=== PATIENT | male | born 1965 | race Caucasian/White ===

== ENCOUNTER 2016-11-28 07:24 | Inpatient (IN) | payer MEDICAID ==
[~2016-11-28] VITALS: Ht 180.3 cm; Wt 71.0 kg
--- NOTE | ~2016-11-28 | CON ---
[employer], [place] REPORT OF CONSULTATION [facility] [id number] UNIT #: [id number] ROOM: 506 DOCTOR: SANDEEP DE JESUS MD BIRTHDATE: [birth year] DOS: HISTORY OF PRESENT ILLNESS: The patient has presented with multiple medical problems, among which has been his epigastric pain, dyspepsia, cephalalgia and he had endoscopic assessment done. Gastritis, hiatal hernia, Alvarez's esophagus identified. He has been scheduled for outpatient for colonoscopy followup. He has been complaining of persistent headache. CT scan of the head has been incomplete evaluation of ethmoids. Therefore, he is going to be deferred to Dr. Umaña for his sinuses issues for management and possible antibiotic therapy. His latest H and H 13 and 39. Differential within normal limit. Comprehensive metabolic panel, electrolytes all balanced. REVIEW OF SYSTEMS: No hematemesis, no hematochezia. No chest pain. No shortness of breath. Gastrointestinal system: Hiatal hernia, gastritis, and Alvraez's esophagus. PHYSICAL EXAMINATION: VITAL SIGNS: Stable. HEENT: Lump at the angle of the jaw on the right side and also at the occiput of the skull that requires drainage in future. Otherwise, HEENT benign. NECK: Supple, no thyromegaly. CHEST: Symmetric anatomy, decreased air entry bilaterally. HEART: Normal sinus rhythm, no gallop, no murmur. ABDOMEN: Soft. No hepato-organomegaly. Bowel sounds present. No pulsatile mass. No rebound effect. EXTREMITIES: No cyanosis, no pedal edema. NEUROLOGIC: Alert, oriented to time, place, person. IMPRESSION: Hiatal hernia, gastritis, Alvarez esophagus, cephalalgia that has to be addressed. ENT consult is going to be organized. Dr. Umaña and I are going to follow up as an outpatient. He needs a colonoscopy screening as well. SANDEEP DE JESUS MD CM:CONSTR:REPORT OF CONSULTATION 1110 12/03/16 3105 interface
--- NOTE | ~2016-11-28 | PROC NOTE ---
[place], [place] PROCEDURE NOTE NAME: BARI SALINAS UNIT #: [id number] ROOM: 506 DOCTOR: SANDEEP DE JESUS MD BIRTHDATE: [birth year] DOS: INDICATION FOR PROCEDURE: A 51-year-old patient who presented with chief complaint of dysphagia, dyspepsia, aggressive alcohol and nicotine dependence. PROCEDURE: Today's procedure part of investigation is panendoscopy plus biopsies, distal esophagus and antrum. PREMEDICATION: Versed and Diprivan. SCOPE: Olympus folding gastroscope Q10 video. REPORT: After putting the patient in the left lateral position and after application of lubricant to the scope, the scope was introduced. Thereafter, under direct visualization, I advanced through the length of the esophagus without difficulty. Esophagus, cervical, thoracic distally carefully examined. Distal esophagitis consistent with Alvarez esophagus, short segment was noticed. Gastric pouch was entered. Gastritis was seen. Antrum was biopsied for H. pylori. Duodenal bulb, second and third part within normal limits. Scope was gradually withdrawn. GI reflexion of scope reveals cardia to be benign. Air was suctioned out. The distal esophagus was biopsied and photographed. The patient extubated, tolerated procedure well. IMPRESSION: Small hiatal hernia, short segment Alvarez esophagus, gastritis mild degree, status post antral biopsy. PLAN AND DISCUSSION: The patient advised to abstain from smoking and alcohol and elevation of the head of the bed 6 inches all time. Omeprazole 20 mg 1 every day would suffice management. Follow up as an outpatient. SANDEEP DE JESUS MD CM:PROCNOTE:PROCEDURE NOTE [id number] SANDEEP DE JESUS MD
--- NOTE | ~2016-11-28 | CON ---
[place], [place] REPORT OF CONSULTATION NAME: BARI SALINAS [facility] #: [id number] UNIT #: [id number] ROOM: 506 DOCTOR: PENELOPE BEST MD BIRTHDATE: [birth year] DOS: 11/29/2016 REASON FOR CONSULTATION: Coronary artery calcification. HISTORY OF PRESENT ILLNESS: The patient is a 51-year-old man who has no previously documented history of coronary artery disease. He does have a history of hypertension and does smoke 1-2 packs of cigarettes a day. He presented to the hospital on this occasion because of abdominal pain and vomiting for 3 weeks. He has noticed that his cough has progressively gotten worse and it is associated with pleuritic chest pain as well as chest wall tenderness. The patient did have a CT scan of his chest on 11/28/2016, which showed extensive coronary artery calcification. We were therefore asked to see the patient. He was admitted to the hospital in 04/2016 with atypical chest pain. He ruled out for myocardial infarction at that time. Cardiac evaluation included an echocardiogram which showed an ejection fraction of 55% with normal wall motion. The patient had trace mitral insufficiency. The study was otherwise unremarkable. He also had an exercise myocardial perfusion exam. He walked 6 minutes and stopped for fatigue. He had no chest pain. He had no diagnostic electrocardiographic changes. Perfusion images showed an ejection fraction of 71% with normal myocardial perfusion, and no wall motion abnormalities. The study was felt to be low risk. His risk factors for coronary artery disease include a family history of heart disease in his father who had bypass surgery in his early 50s, long-term and ongoing cigarette abuse, and hypertension. The patient's lipid profile is unremarkable. PAST MEDICAL HISTORY: Includes: 1. Hypertension. 2. Hypothyroidism. 3. Alcohol abuse. 4. Macrocytic anemia. 5. Gastroesophageal reflux disease. 6. Long-term and ongoing tobacco abuse. MEDICATIONS PRIOR TO ADMISSION: Aspirin 81 mg daily. ALLERGIES: THE PATIENT LISTS AN ALLERGY TO PENICILLINS. IN ADDITION, HE DID HAVE ANGIOEDEMA WHEN TREATED WITH LISINOPRIL. FAMILY HISTORY: The patient's father had myocardial infarction and a bypass surgery in his early 50s. His mother is alive and well. His brothers and sisters are all healthy to his knowledge. SOCIAL HISTORY: The patient is and lives with his . He smokes 1-2 packs of cigarettes every day. He also drinks a substantial amount of alcohol [place], [place] REPORT OF CONSULTATION [id number] UNIT #: [id number] ROOM: 506 DOCTOR: PENELOPE BEST MD BIRTHDATE: [birth year] on a daily basis. PHYSICAL EXAMINATION: GENERAL: Reveals a well-nourished white male who is awake, alert and oriented. VITAL SIGNS: Pulse is 68 and regular, blood pressure is 134/85. He is afebrile. He weighs 71 kg and has a body mass index of 21.8. HEENT: Normocephalic, atraumatic. Extraocular muscles are intact. Sclerae are clear. Pupils are equal, round and react to light. The oral mucosa is moist. Tongue is midline. NECK: Supple. He has no jugular distention. Carotids are full. I heard no bruits. He had no neck or supraclavicular masses. No thyromegaly. LUNGS: Respirations are unlabored. His chest is clear to auscultation and percussion. He has no presacral edema and no chest wall tenderness. CARDIOVASCULAR: His heart has a regular rhythm. There are no murmurs or rubs. He has a fourth heart sound, but no third heart sound. The PMI is not displaced. There is no precordial heave, lift or thrill. ABDOMEN: Soft and normoactive without masses, organomegaly or bruits. EXTREMITIES: Showed no edema. Peripheral pulses were palpable in the feet bilaterally. LABORATORY DATA: I reviewed his electrocardiogram. It shows sinus rhythm with early repolarization changes, but no acute ST or T-wave changes. Troponin levels on this admission are normal. IMPRESSION: 1. Cigarette abuse. 2. Alcohol abuse. 3. Hypertension. 4. Family history of early coronary disease in his father. 5. History of angioedema from lisinopril. 6. Coronary artery calcifications. PLAN: The patient did have a stress test and echocardiogram in 04/2016. Results of these tests were low risk. Coronary artery calcification indicates the presence of plaque, but does not indicate that the plaque is active or occlusive. Therefore, while it is difficult to have occlusive coronary artery disease without coronary calcifications, the presence of calcifications does not imply that severe coronary occlusion is present as well. Since he just had an echo with stress test within the last year, no other evaluation at this time would be appropriate. He certainly should do all that is in his power to modify his risk factors. This especially means curtailing his cigarette use and controlling his blood pressure. At this point, we will sign off, but will remain available to reassess him should his symptoms change. We thank the hospitalist group for asking our advice regarding his care. [place], [place] REPORT OF CONSULTATION NAME: BARI SALINAS Glenn UNIT #: [id number] ROOM: 506 DOCTOR: PENELOPE BEST MD BIRTHDATE: [birth year] PENELOPE BEST MD CM:CONSTR:REPORT OF CONSULTATION 1529 11/30/16 0016 interface
--- NOTE | ~2016-11-28 | CON ---
[place], [place] REPORT OF CONSULTATION NAME: BARI SALINAS UNIT #: [id number] ROOM: 506 DOCTOR: SANDEEP DE JESUS MD BIRTHDATE: [birth year] DOS: 12/02/2016 HISTORY OF PRESENT ILLNESS: The patient is a 51-year-old, who has presented with chief complaints of epigastric distress, gastroesophageal reflux, esophageal biopsy for gastritis, hiatal hernia and Alvarez's esophagus. He has now cephalalgia that he is dealing with. Tylenol is not helping and I am offering suggestions to be managed with migraine protocol to see if it is going to be of help. On the other hand, he has anemia, borderline. He has not had a colonoscopy screening in the past, this is going to be organized in future as an outpatient. PAST MEDICAL HISTORY: Associated with alcohol dependency, hypothyroidism, hypertension, macrocytic anemia, nicotine dependency and gastroesophageal reflux. REVIEW OF SYSTEMS: HEENT: Denies double vision or blurred vision. RESPIRATORY: Denies shortness of breath. CARDIOVASCULAR: Denies chest pain. DIGESTIVE SYSTEM: No hematemesis and no hematochezia. Otherwise, as endoscopic findings. PHYSICAL EXAMINATION: VITAL SIGNS: Stable. HEENT: Benign. He has a lump under mandibular angle of his jaw externally and he has the same lump in the occiput posteriorly of his skull. NECK: Supple, otherwise. RESPIRATORY: Lung vesicular. No wheeze and no rhonchi. HEART: Normal sinus rhythm. No gallop and no murmur. ABDOMEN: Soft. No hepato-organomegaly. Bowel sounds present. No pulsatile mass. EXTREMITIES: No cyanosis and no pedal edema. NEUROLOGIC: Alert and oriented to time, place and person. IMPRESSION: Anemia, nicotine and alcohol dependency and migraine cephalalgia. PLAN AND DISCUSSION: Migraine coverage. Advising to away from alcoholic status and reducing his nicotine consumption. Followup colonoscopy as outpatient. [place], [place] REPORT OF CONSULTATION NAME: BARI SALINAS Glenn UNIT #: [id number] ROOM: 506 DOCTOR: SANDEEP DE JESUS MD BIRTHDATE: [birth year] SANDEEP DE JESUS MD CM:CONSTR:REPORT OF CONSULTATION 1643 12/03/16 0030 interface
[~2016-11-28 07:24] MED LIST: HYDROCHLOROTH12.5 M2 PO; LIBRIUM5 MG PO; LISINOPRIL10 M1 PO
[2016-11-28] MEDS ORDERED: ASPIRIN81 M1 PO (07:30)
[2016-11-28 08:17] LABS: BASO # 0.1 10*3/uL (0.0-0.1); BASO % 0.9 % (0.0-1.0); EOS % 0.3 % (1.0-4.0); HEMATOCRIT 41.6 % (42.0-52.0); HEMOGLOBIN 14.5 g/dl (14.0-18.0); LYMPH # 1.6 10*3/uL (1.3-4.4); LYMPH % 25.7 % (27.0-41.0); MEAN CELL VOLUME 94.3 fl (80.0-94.0); MEAN CORPUSCULAR HGB 32.9 pg (27.0-31.0); MEAN CORPUSCULAR HGB CONC 34.9 g/dl (33.0-37.0); MEAN PLATELET VOLUME 8.7 fl (9.6-12.3); MONO # 0.6 10*3/uL (0.1-1.0); MONO % 9.9 % (3.0-9.0); PLATELET COUNT AUTOMATED 210 10*3/uL (130-400); RED BLOOD COUNT 4.41 10*6/uL (4.50-5.90); RED CELL DISTRI WIDTH 12.8 % (0-14.5); WHITE BLOOD COUNT 6.4 10*3/uL (4.8-10.8)
[2016-11-28 08:25] LABS: INTERNATIONAL NORM RATIO 0.9 (2.0-3.5)
[2016-11-28 08:33] LABS: ALKALINE PHOSPHATASE 66 U/L (45-117); BILIRUBIN, TOTAL 0.5 mg/dl (0.2-1.0); BUN 12 mg/dl (7-24); CARBON DIOXIDE 26 mmol/L (21-32); CHLORIDE 101 mmol/L (98-107); CKMB 0.9 ng/ml (0.5-3.6); CPK 125 U/L (39-308); EST GLOM FILT AFRICAN AMERICAN > 60 ml/min; GLUCOSE 114 mg/dL (65-99); MAGNESIUM 1.9 mg/dL (1.5-2.1); POTASSIUM 4.3 mmol/L (3.5-5.1); SGOT/AST 34 IU/L (3-35); SGPT/ALT 23 U/L (12-78); SODIUM 137 mmol/L (136-145)
[2016-11-28 08:36] LABS: C-REACTIVE PROTEIN < 0.29 MG/DL (0-0.3); TROPONIN I < 0.015 ng/ml (<0.045)
[2016-11-28 10:14] LABS: LA>2 REFLEX 2 HR DRAW NOW
[2016-11-28 10:29] LABS: LA>2 RFLX FOLLOW UP AT 2 HRS 2.7 mmol/L (0.4-2.0)
[2016-11-28 12:09] LABS: CKMB 0.8 ng/ml (0.5-3.6); CPK 118 U/L (39-308); TROPONIN I < 0.015 ng/ml (<0.045)
[2016-11-28 12:24] LABS: LA>2 REFLEX 4 HR DRAW NOW
[2016-11-28 17:55] LABS: URINE AMPHETAMINES < 1000 (1000ng/ml); URINE BARBITURATES < 200 (200ng/ml); URINE COCAINE < 300 (300ng/ml)
[2016-11-28 17:57] LABS: BILIRUBIN NEGATIVE (NEGATIVE); BLOOD NEGATIVE (NEGATIVE); CLARITY SL CLOUDY (CLEAR); COLOR YELLOW (YELLOW); GLUCOSE NEGATIVE (NEGATIVE); KETONE NEGATIVE (NEGATIVE); LEUKO ESTERASE NEGATIVE (NEGATIVE); NITRITE NEGATIVE (NEGATIVE); PH 6.5 (5.0-9.0); PROTEIN NEGATIVE (NEGATIVE); SPECIFIC GRAVITY <= 1.005 (1.005-1.030); UROBILINOGEN 0.2 E.U./dl (0.2-1.0)
[2016-11-28 18:07] LABS: CKMB 0.9 ng/ml (0.5-3.6); CPK 113 U/L (39-308)
[2016-11-28 18:12] LABS: TROPONIN I < 0.015 ng/ml (<0.045)
[2016-11-28 18:30] LABS: BACTERIA TRACE; EPITHELIAL CELLS 0-2; RBC 0-2 rbc/hpf (0-2); URINE REFLEX COMMENT NO (NO)
[2016-11-29 00:56] LABS: CKMB 1.7 ng/ml (0.5-3.6); CPK 119 U/L (39-308)
[2016-11-29 01:02] LABS: TROPONIN I < 0.015 ng/ml (<0.045)
[2016-11-29 06:12] LABS: BASO # 0.1 10*3/uL (0.0-0.1); EOS # 0.2 10*3/uL (0.0-0.4); EOS % 2.9 % (1.0-4.0); HEMATOCRIT 38.9 % (42.0-52.0); HEMOGLOBIN 13.1 g/dl (14.0-18.0); LYMPH % 38.9 % (27.0-41.0); MEAN CELL VOLUME 96.8 fl (80.0-94.0); MEAN CORPUSCULAR HGB 32.6 pg (27.0-31.0); MEAN CORPUSCULAR HGB CONC 33.7 g/dl (33.0-37.0); MEAN PLATELET VOLUME 9.3 fl (9.6-12.3); MONO # 0.6 10*3/uL (0.1-1.0); NEUT # 2.4 10*3/uL (2.3-7.9); PLATELET COUNT AUTOMATED 180 10*3/uL (130-400); RED BLOOD COUNT 4.02 10*6/uL (4.50-5.90); RED CELL DISTRI WIDTH 12.9 % (0-14.5); WHITE BLOOD COUNT 5.3 10*3/uL (4.8-10.8)
[2016-11-29 06:44] LABS: PROTHROMBIN TIME 10.9 SECONDS (9.0-12.4)
[2016-11-29 06:45] LABS: ALBUMIN 3.1 gm/dl (3.1-4.5); BILIRUBIN, TOTAL 1.1 mg/dl (0.2-1.0); BUN 11 mg/dl (7-24); CARBON DIOXIDE 23 mmol/L (21-32); CHLORIDE 103 mmol/L (98-107); CHOLESTEROL 143 mg/dL (<200); EST GLOM FILT AFRICAN AMERICAN > 60 ml/min; GLUCOSE 84 mg/dL (65-99); MAGNESIUM 1.9 mg/dL (1.5-2.1); PHOSPHOROUS 3.1 mg/dL (2.5-4.9); POTASSIUM 3.9 mmol/L (3.5-5.1); SGOT/AST 31 IU/L (3-35); SGPT/ALT 19 U/L (12-78); SODIUM 137 mmol/L (136-145); TRIGLYCERIDES 76 mg/dl (<150); VLDL CHOLESTEROL 15 mg/dL (6-40)
[2016-11-29 06:51] LABS: ALKALINE PHOSPHATASE 54 U/L (45-117); FREE T4 0.73 ng/dl (0.76-1.46); HDL CHOLESTEROL 70 mg/dl (40-60); LDL CHOLESTEROL 58 mg/dL (9-159)
[2016-11-29 06:51] LABS: VITAMIN D, 25-HYDROXY 10.1 ng/mL (30-100)
[2016-11-29 06:52] LABS: FOLIC ACID 7.64 ng/mL (>5.38)
[2016-11-30 07:05] LABS: BASO # 0.1 10*3/uL (0.0-0.1); EOS # 0.1 10*3/uL (0.0-0.4); EOS % 2.7 % (1.0-4.0); HEMATOCRIT 39.3 % (42.0-52.0); HEMOGLOBIN 13.3 g/dl (14.0-18.0); LYMPH # 1.8 10*3/uL (1.3-4.4); LYMPH % 34.2 % (27.0-41.0); MEAN CELL VOLUME 96.3 fl (80.0-94.0); MEAN CORPUSCULAR HGB 32.6 pg (27.0-31.0); MEAN CORPUSCULAR HGB CONC 33.8 g/dl (33.0-37.0); MEAN PLATELET VOLUME 9.4 fl (9.6-12.3); MONO # 0.6 10*3/uL (0.1-1.0); MONO % 11.3 % (3.0-9.0); NEUT # 2.7 10*3/uL (2.3-7.9); NEUT % 50.6 % (47.0-73.0); PLATELET COUNT AUTOMATED 169 10*3/uL (130-400); RED BLOOD COUNT 4.08 10*6/uL (4.50-5.90); RED CELL DISTRI WIDTH 12.6 % (0-14.5); WHITE BLOOD COUNT 5.2 10*3/uL (4.8-10.8)
[2016-11-30 07:21] LABS: CHLORIDE 104 mmol/L (98-107); SODIUM 137 mmol/L (136-145)
[2016-11-30 07:43] LABS: ALBUMIN 3.1 gm/dl (3.1-4.5); ALKALINE PHOSPHATASE 51 U/L (45-117); BILIRUBIN, TOTAL 0.5 mg/dl (0.2-1.0); BUN 8 mg/dl (7-24); CARBON DIOXIDE 22 mmol/L (21-32); EST GLOM FILT AFRICAN AMERICAN > 60 ml/min; GLUCOSE 93 mg/dL (65-99); SGOT/AST 33 IU/L (3-35); SGPT/ALT 21 U/L (12-78); TOTAL PROTEIN 6.1 gm/dL (6.4-8.2)
[2016-12-01 06:22] LABS: BASO # 0.1 10*3/uL (0.0-0.1); BASO % 1.1 % (0.0-1.0); EOS # 0.3 10*3/uL (0.0-0.4); EOS % 4.6 % (1.0-4.0); HEMOGLOBIN 13.7 g/dl (14.0-18.0); LYMPH # 2.4 10*3/uL (1.3-4.4); MEAN CELL VOLUME 97.4 fl (80.0-94.0); MEAN CORPUSCULAR HGB 32.5 pg (27.0-31.0); MEAN CORPUSCULAR HGB CONC 33.4 g/dl (33.0-37.0); MEAN PLATELET VOLUME 9.8 fl (9.6-12.3); MONO # 0.6 10*3/uL (0.1-1.0); MONO % 11.7 % (3.0-9.0); NEUT # 2.1 10*3/uL (2.3-7.9); NEUT % 38.4 % (47.0-73.0); PLATELET COUNT AUTOMATED 174 10*3/uL (130-400); RED BLOOD COUNT 4.21 10*6/uL (4.50-5.90); RED CELL DISTRI WIDTH 12.7 % (0-14.5); WHITE BLOOD COUNT 5.5 10*3/uL (4.8-10.8)
[2016-12-01 06:48] LABS: ALBUMIN 3.2 gm/dl (3.1-4.5); ALKALINE PHOSPHATASE 55 U/L (45-117); BILIRUBIN, TOTAL 0.3 mg/dl (0.2-1.0); BUN 9 mg/dl (7-24); CARBON DIOXIDE 29 mmol/L (21-32); CHLORIDE 103 mmol/L (98-107); EST GLOM FILT AFRICAN AMERICAN > 60 ml/min; GLUCOSE 91 mg/dL (65-99); POTASSIUM 4.1 mmol/L (3.5-5.1); SGOT/AST 30 IU/L (3-35); SGPT/ALT 22 U/L (12-78); SODIUM 141 mmol/L (136-145); TOTAL PROTEIN 6.6 gm/dL (6.4-8.2)
[2016-12-02 06:36] LABS: BASO % 0.6 % (0.0-1.0); EOS # 0.3 10*3/uL (0.0-0.4); EOS % 5.1 % (1.0-4.0); HEMATOCRIT 40.8 % (42.0-52.0); HEMOGLOBIN 13.4 g/dl (14.0-18.0); LYMPH # 2.4 10*3/uL (1.3-4.4); LYMPH % 38.4 % (27.0-41.0); MEAN CELL VOLUME 98.8 fl (80.0-94.0); MEAN CORPUSCULAR HGB 32.4 pg (27.0-31.0); MEAN CORPUSCULAR HGB CONC 32.8 g/dl (33.0-37.0); MEAN PLATELET VOLUME 10.3 fl (9.6-12.3); MONO # 0.8 10*3/uL (0.1-1.0); MONO % 11.8 % (3.0-9.0); NEUT # 2.8 10*3/uL (2.3-7.9); NEUT % 43.9 % (47.0-73.0); PLATELET COUNT AUTOMATED 165 10*3/uL (130-400); RED BLOOD COUNT 4.13 10*6/uL (4.50-5.90); RED CELL DISTRI WIDTH 12.8 % (0-14.5); WHITE BLOOD COUNT 6.3 10*3/uL (4.8-10.8)
[2016-12-02 07:11] LABS: BUN 10 mg/dl (7-24); CARBON DIOXIDE 29 mmol/L (21-32); CHLORIDE 101 mmol/L (98-107); GLUCOSE 88 mg/dL (65-99); SODIUM 140 mmol/L (136-145)
[2016-12-02 07:12] LABS: EST GLOM FILT AFRICAN AMERICAN > 60 ml/min
[2016-12-03 06:11] LABS: BASO # 0.1 10*3/uL (0.0-0.1); BASO % 0.8 % (0.0-1.0); EOS # 0.3 10*3/uL (0.0-0.4); EOS % 4.8 % (1.0-4.0); HEMATOCRIT 39.6 % (42.0-52.0); HEMOGLOBIN 13.5 g/dl (14.0-18.0); LYMPH # 2.1 10*3/uL (1.3-4.4); LYMPH % 35.5 % (27.0-41.0); MEAN CELL VOLUME 97.3 fl (80.0-94.0); MEAN CORPUSCULAR HGB 33.2 pg (27.0-31.0); MEAN CORPUSCULAR HGB CONC 34.1 g/dl (33.0-37.0); MEAN PLATELET VOLUME 10.1 fl (9.6-12.3); MONO # 0.7 10*3/uL (0.1-1.0); NEUT # 2.8 10*3/uL (2.3-7.9); NEUT % 46.7 % (47.0-73.0); PLATELET COUNT AUTOMATED 173 10*3/uL (130-400); RED BLOOD COUNT 4.07 10*6/uL (4.50-5.90); RED CELL DISTRI WIDTH 12.6 % (0-14.5)
[2016-12-03 06:25] LABS: ALBUMIN 3.4 gm/dl (3.1-4.5); ALKALINE PHOSPHATASE 61 U/L (45-117); BILIRUBIN, TOTAL 0.2 mg/dl (0.2-1.0); BUN 12 mg/dl (7-24); CARBON DIOXIDE 26 mmol/L (21-32); CHLORIDE 101 mmol/L (98-107); EST GLOM FILT AFRICAN AMERICAN > 60 ml/min; GLUCOSE 98 mg/dL (65-99); POTASSIUM 4.2 mmol/L (3.5-5.1); SGOT/AST 22 IU/L (3-35); SGPT/ALT 25 U/L (12-78); SODIUM 138 mmol/L (136-145); TOTAL PROTEIN 6.8 gm/dL (6.4-8.2)
== END 2016-12-03 12:36 | disposition home or self-care (01) | DRG 392 ==
LOC: ED 07:24 → EDHOLD 09:39 → 5E 09:39
PROVIDERS: Emergency Medicine; Family Medicine; Hospitalist; Internal Medicine
PROC: 0DB68ZX Excision of Stomach, Via Natural or Artificial Opening Endoscopic, Diagnostic (ICD-10-PCS; principal; 2016-12-01)
DX: K29.70 Gastritis, unspecified, without bleeding (principal); E44.0 Moderate protein-calorie malnutrition; E87.1 Hypo-osmolality and hyponatremia; R13.10 Dysphagia, unspecified; F17.210 Nicotine dependence, cigarettes, uncomplicated; K21.9 Gastro-esophageal reflux disease without esophagitis; I10 Essential (primary) hypertension; E03.9 Hypothyroidism, unspecified; Z88.0 Allergy status to penicillin; Z88.8 Allergy status to other drugs, medicaments and biological substances; R11.10 Vomiting, unspecified; R51 Headache; I25.10 Atherosclerotic heart disease of native coronary artery without angina pectoris; Z82.49 Family history of ischemic heart disease and other diseases of the circulatory system; Z90.49 Acquired absence of other specified parts of digestive tract; D53.9 Nutritional anemia, unspecified; Z71.6 Tobacco abuse counseling; E55.9 Vitamin D deficiency, unspecified; Z68.21 Body mass index [BMI] 21.0-21.9, adult; K44.9 Diaphragmatic hernia without obstruction or gangrene; K22.70 Barrett's esophagus without dysplasia; F10.20 Alcohol dependence, uncomplicated; G43.909 Migraine, unspecified, not intractable, without status migrainosus

== ENCOUNTER 2017-04-17 18:08 | Inpatient (IN) | payer SELFPAY ==
[~2017-04-17] VITALS: Ht 180.3 cm; Wt 66.9 kg
[~2017-04-17 18:08] MED LIST changes: +ASPIRIN81 M1 PO
[2017-04-17 18:30] VITALS: BP 149/95
[2017-04-17] MEDS ORDERED: LEVOFLOXACIN500 MG PO (18:43)
[2017-04-17 18:46] LABS: BASO # 0.1 10*3/uL (0.0-0.1); EOS # 0.1 10*3/uL (0.0-0.4); EOS % 0.9 % (1.0-4.0); HEMATOCRIT 42.4 % (42.0-52.0); HEMOGLOBIN 14.7 g/dl (14.0-18.0); LYMPH # 2.7 10*3/uL (1.3-4.4); LYMPH % 40.1 % (27.0-41.0); MEAN CELL VOLUME 96.6 fl (80.0-94.0); MEAN CORPUSCULAR HGB 33.5 pg (27.0-31.0); MEAN CORPUSCULAR HGB CONC 34.7 g/dl (33.0-37.0); MONO % 14.6 % (3.0-9.0); NEUT # 2.9 10*3/uL (2.3-7.9); NEUT % 43.3 % (47.0-73.0); PLATELET COUNT AUTOMATED 187 10*3/uL (130-400); RED BLOOD COUNT 4.39 10*6/uL (4.50-5.90); RED CELL DISTRI WIDTH 12.9 % (0-14.5); WHITE BLOOD COUNT 6.8 10*3/uL (4.8-10.8)
[2017-04-17 18:56] LABS: INTERNATIONAL NORM RATIO 0.9 (2.0-3.5); PROTHROMBIN TIME 9.6 SECONDS (9.0-12.4)
[2017-04-17 19:03] LABS: ALBUMIN 4.1 gm/dl (3.1-4.5); ALKALINE PHOSPHATASE 70 U/L (45-117); BILIRUBIN, TOTAL 0.4 mg/dl (0.2-1.0); BUN 9 mg/dl (7-24); CARBON DIOXIDE 26 mmol/L (21-32); CHLORIDE 102 mmol/L (98-107); EST GLOM FILT AFRICAN AMERICAN > 60 ml/min; GLUCOSE 93 mg/dL (65-99); MAGNESIUM 1.9 mg/dL (1.5-2.1); POTASSIUM 4.3 mmol/L (3.5-5.1); SGOT/AST 54 IU/L (3-35); SGPT/ALT 25 U/L (12-78); SODIUM 138 mmol/L (136-145); TOTAL PROTEIN 7.9 gm/dL (6.4-8.2)
[2017-04-17 19:04] LABS: TROPONIN I < 0.015 ng/ml (<0.045)
[2017-04-17 21:10] VITALS: BP 134/92
[2017-04-18] VITALS: BP 121/71
[2017-04-18 06:13] LABS: BASO # 0.1 10*3/uL (0.0-0.1); EOS # 0.1 10*3/uL (0.0-0.4); EOS % 1.2 % (1.0-4.0); HEMATOCRIT 40.5 % (42.0-52.0); HEMOGLOBIN 13.8 g/dl (14.0-18.0); LYMPH # 1.6 10*3/uL (1.3-4.4); LYMPH % 32.1 % (27.0-41.0); MEAN CELL VOLUME 97.4 fl (80.0-94.0); MEAN CORPUSCULAR HGB 33.2 pg (27.0-31.0); MEAN CORPUSCULAR HGB CONC 34.1 g/dl (33.0-37.0); MEAN PLATELET VOLUME 9.2 fl (9.6-12.3); MONO # 0.8 10*3/uL (0.1-1.0); MONO % 16.1 % (3.0-9.0); NEUT # 2.5 10*3/uL (2.3-7.9); NEUT % 49.4 % (47.0-73.0); PLATELET COUNT AUTOMATED 151 10*3/uL (130-400); RED BLOOD COUNT 4.16 10*6/uL (4.50-5.90)
[2017-04-18 06:50] LABS: BUN 9 mg/dl (7-24); CARBON DIOXIDE 25 mmol/L (21-32); CHLORIDE 105 mmol/L (98-107); CHOLESTEROL 154 mg/dL (<200); EST GLOM FILT AFRICAN AMERICAN > 60 ml/min; FREE T4 0.69 ng/dl (0.76-1.46); GLUCOSE 80 mg/dL (65-99); HDL CHOLESTEROL 79 mg/dl (40-60); INTERNATIONAL NORM RATIO 0.9 (2.0-3.5); LDL CHOLESTEROL 63 mg/dL (9-159); PHOSPHOROUS 3.2 mg/dL (2.5-4.9); POTASSIUM 4.1 mmol/L (3.5-5.1); SODIUM 139 mmol/L (136-145); TRIGLYCERIDES 61 mg/dl (<150); VLDL CHOLESTEROL 12 mg/dL (6-40)
[2017-04-18 06:57] LABS: THYROID STIM HORMONE (HS) 0.681 uIU/ml (0.358-4.75)
[2017-04-18 07:44] LABS: HEMOGLOBIN A1c 5.3 % (4.8-5.6)
[2017-04-18 08:00] VITALS: BP 144/85
[2017-04-18 09:17] LABS: VITAMIN D, 25-HYDROXY 43.5 ng/mL (30-100)
[2017-04-18 09:18] LABS: FOLIC ACID > 24.00 ng/mL (>5.38)
== END 2017-04-18 11:00 | disposition home or self-care (01) | DRG 313 ==
LOC: ED 18:08 → EDHOLD 20:20 → 4E 20:20
PROVIDERS: Internal Medicine; Nurse Practitioner Family
DX: R07.9 Chest pain, unspecified (principal); E03.9 Hypothyroidism, unspecified; F10.920 Alcohol use, unspecified with intoxication, uncomplicated; F17.210 Nicotine dependence, cigarettes, uncomplicated; R74.0 Nonspecific elevation of levels of transaminase and lactic acid dehydrogenase [LDH]; K21.9 Gastro-esophageal reflux disease without esophagitis; Z82.49 Family history of ischemic heart disease and other diseases of the circulatory system; Z79.899 Other long term (current) drug therapy; Z88.0 Allergy status to penicillin; Z88.8 Allergy status to other drugs, medicaments and biological substances; Z71.6 Tobacco abuse counseling; Z87.81 Personal history of (healed) traumatic fracture

== ENCOUNTER 2017-04-25 09:03 | Emergency (ER) | payer SELFPAY ==
[~2017-04-25] VITALS: Wt 72.6 kg
[~2017-04-25 09:03] MED LIST changes: +LEVOFLOXACIN500 MG PO
[2017-04-25] MEDS ORDERED: NAPROSYN500 MG PO (09:17)
[2017-04-25] MEDS ORDERED: 'PARAFON FORTE500 M1 PO (09:17)
== END 2017-04-25 11:20 | disposition home or self-care (01) ==
LOC: ED 09:03
DX: M54.42 Lumbago with sciatica, left side (principal); R03.0 Elevated blood-pressure reading, without diagnosis of hypertension; F17.200 Nicotine dependence, unspecified, uncomplicated; I10 Essential (primary) hypertension; E03.9 Hypothyroidism, unspecified; K21.9 Gastro-esophageal reflux disease without esophagitis; Z88.0 Allergy status to penicillin; Z88.8 Allergy status to other drugs, medicaments and biological substances; Z79.82 Long term (current) use of aspirin

== ENCOUNTER 2017-04-30 13:06 | Emergency (ER) | payer OTHER ==
[~2017-04-30] VITALS: Ht 180.3 cm; Wt 72.6 kg
[~2017-04-30 13:06] MED LIST changes: +'PARAFON FORTE500 M1 PO; +NAPROSYN500 MG PO
[2017-04-30] MEDS ORDERED: MEDROL DOSEPAK4 MG PO (13:51)
== END 2017-04-30 14:08 | disposition home or self-care (01) ==
LOC: ED 13:06
DX: M54.40 Lumbago with sciatica, unspecified side (principal); I10 Essential (primary) hypertension; E03.9 Hypothyroidism, unspecified; K21.9 Gastro-esophageal reflux disease without esophagitis; F17.200 Nicotine dependence, unspecified, uncomplicated; Z88.0 Allergy status to penicillin; Z88.8 Allergy status to other drugs, medicaments and biological substances; Z79.899 Other long term (current) drug therapy

== ENCOUNTER → 2017-06-15 | Outpatient (CLI) | payer OTHER ==
[~2017-06-15] MED LIST changes: +MEDROL DOSEPAK4 MG PO
== END | disposition home or self-care (01) ==
LOC: MRI 09:00
DX: M48.06 Spinal stenosis, lumbar region (principal); S33.5XXA Sprain of ligaments of lumbar spine, initial encounter; X58.XXXA Exposure to other specified factors, initial encounter; Y93.89 Activity, other specified; Y92.89 Other specified places as the place of occurrence of the external cause; Y99.8 Other external cause status

== ENCOUNTER 2017-07-08 14:18 | Inpatient (IN) | payer SELFPAY ==
[~2017-07-08] VITALS: Ht 180.3 cm; Wt 68.9 kg
--- NOTE | 2017-07-08 14:26 | NUR ---
PT STATES TO TRIAGE NURSE "IF YOU CALL ME.... I'LL BE OUTSIDE SMOKING"
[2017-07-08 14:45] VITALS: BP 135/89
[2017-07-08 15:01] LABS: BASO # 0.1 10*3/uL (0.0-0.1); BASO % 0.6 % (0.0-1.0); EOS % 0.4 % (1.0-4.0); HEMATOCRIT 40.8 % (42.0-52.0); HEMOGLOBIN 13.7 g/dl (14.0-18.0); LYMPH # 2.2 10*3/uL (1.3-4.4); LYMPH % 22.2 % (27.0-41.0); MEAN CELL VOLUME 98.3 fl (80.0-94.0); MEAN CORPUSCULAR HGB CONC 33.6 g/dl (33.0-37.0); MEAN PLATELET VOLUME 10.1 fl (9.6-12.3); MONO # 1.2 10*3/uL (0.1-1.0); MONO % 12.1 % (3.0-9.0); NEUT # 6.3 10*3/uL (2.3-7.9); NEUT % 64.3 % (47.0-73.0); PLATELET COUNT AUTOMATED 79 10*3/uL (130-400); RED BLOOD COUNT 4.15 10*6/uL (4.50-5.90); WHITE BLOOD COUNT 9.8 10*3/uL (4.8-10.8)
[2017-07-08 15:06] LABS: BILIRUBIN NEGATIVE (NEGATIVE); BLOOD NEGATIVE (NEGATIVE); CLARITY CLEAR (CLEAR); COLOR YELLOW (YELLOW); GLUCOSE NEGATIVE (NEGATIVE); KETONE NEGATIVE (NEGATIVE); LEUKO ESTERASE NEGATIVE (NEGATIVE); NITRITE NEGATIVE (NEGATIVE); PH 6.5 (5.0-9.0); SPECIFIC GRAVITY <= 1.005 (1.005-1.030); UROBILINOGEN 0.2 E.U./dl (0.2-1.0)
[2017-07-08 15:16] LABS: BACTERIA TRACE; EPITHELIAL CELLS 0-2; WBC 0-2 wbc/hpf (0-5)
[2017-07-08 15:17] LABS: URINE AMPHETAMINES < 1000 (1000ng/ml); URINE BARBITURATES < 200 (200ng/ml); URINE BENZODIAZEPINES < 200 (200ng/ml); URINE CANNABINOIDS (THC) < 50 (50ng/ml); URINE COCAINE < 300 (300ng/ml); URINE METHADONE < 300 (300ng/ml); URINE OPIATES < 300 (300ng/ml); URINE PHENCYCLIDINE < 25 (25ng/ml)
[2017-07-08 15:17] LABS: ALBUMIN 3.9 gm/dl (3.1-4.5); ALKALINE PHOSPHATASE 94 U/L (45-117); BUN 4 mg/dl (7-24); CHLORIDE 100 mmol/L (98-107); CREATININE 0.77 mg/dL (0.70-1.30); MAGNESIUM 1.9 mg/dL (1.5-2.1); POTASSIUM 4.1 mmol/L (3.5-5.1); SGOT/AST 303 IU/L (3-35); SGPT/ALT 161 U/L (12-78); SODIUM 135 mmol/L (136-145); TOTAL PROTEIN 7.8 gm/dL (6.4-8.2)
--- NOTE | 2017-07-08 15:29 | NUR ---
NOTIFIED BY LAB OF CRITICAL ALCOHOL OF [address] DR BRANDON ARGUELLO.
--- NOTE | 2017-07-08 16:00 | NUR ---
51 year old M admitted to room # 410 for stabilization. Reports an addiction to alcohol. last used today prior to admission. Compliant with admission procedure. Patient somewhat anxious, but is able to sit still. able to focus eyes on nurse during interview. See assessment forms for additional information about patient status.
[2017-07-08 16:24] VITALS: BP 128/76
--- NOTE | 2017-07-08 16:53 | NUR ---
PT COMPLAINS OF BACK PAIN AND HEADACHE, TYLENOL GIVEN. PT GIVEN FIRST DOSE OF LIBRIUM, DISCUSS MEDICATION, NEEDS REINFORCEMENT. PT WITH LOW UNDERSTANDING OF MEDICAION AND HAS DIFFICULT TIME FOCOUSING AT TIMES. WILL CONTINUE TO MONITOR FOR NEEDS. IV INFUSING INTO RIGHT AC IV WITHOUT DIFFICULTY. SKULL GRINDER ON, HRR. ASSESSMENT COMPLETE.
--- NOTE | 2017-07-08 19:54 | NUR ---
PT MEDICATED WITH PRN ZOFRAN/IBUPROFEN FOR C/O NAUSEA/CHRONIC BACK PAIN.
[2017-07-08 20:00] VITALS: BP 111/62
--- NOTE | 2017-07-08 21:00 | NUR ---
PT RESTING QUIETLY IN BED. NO FURHTER C/O PAIN/NAUSEA. MILD DIAPHORESIS NOTED. HEAT TURNED DOWN IN ROOM. CALL LIGHT IN REACH.
--- NOTE | 2017-07-08 22:26 | NUR ---
24 HR chart check completed.
[2017-07-09 06:10] LABS: ALBUMIN 3.2 gm/dl (3.1-4.5); ALKALINE PHOSPHATASE 93 U/L (45-117); BUN 6 mg/dl (7-24); CHLORIDE 102 mmol/L (98-107); CREATININE 0.78 mg/dL (0.70-1.30); FREE T4 0.72 ng/dl (0.76-1.46); MAGNESIUM 1.7 mg/dL (1.5-2.1); PHOSPHOROUS 3.6 mg/dL (2.5-4.9); SGOT/AST 229 IU/L (3-35); SGPT/ALT 122 U/L (12-78); SODIUM 136 mmol/L (136-145); TOTAL PROTEIN 6.6 gm/dL (6.4-8.2)
--- NOTE | 2017-07-09 06:25 | NUR ---
PT RESTING QUIETLY IN BED. NO FURTHER C/O PAIN VOICED. FINE HAND TREMORS NOTED PREVIOUSLY. PT STATES THAT DIAPHORESIS SUBSIDED. ENCOURAGED TO CALL FOR PRN MEDS IF NEEDED. PT AGREEABLE.
[2017-07-09 08:00] VITALS: BP 140/86
--- NOTE | 2017-07-09 08:10 | NUR ---
Medicated with tyelnol per prn order for complaints of headache.
--- NOTE | 2017-07-09 09:00 | NUR ---
Pt states that tylenol was effective.
[2017-07-09 12:00] VITALS: BP 146/88
--- NOTE | 2017-07-09 14:41 | NUR ---
Pt up ambulatory in purvis. Gait steady.
[2017-07-09 16:00] VITALS: BP 141/88
--- NOTE | 2017-07-09 17:22 | NUR ---
Pt medicated for complaints of back pain medicated with robaxin and motrin. Pt then states he is having upset stomach and nausea so bentyl and zofran was given.
[2017-07-09 20:00] VITALS: BP 155/95
--- NOTE | 2017-07-09 20:35 | NUR ---
PT RESTING QUIETLY IN BED. C/O DIARRHEA EARLIER TODAY AND VIVID DREAMS. PT ALSO NOTED TO BE DIAPHORETIC AND HAND TREMORS. GENERAL WEAKNESS NOTED. DENIES ANY NEED FOR ANY PRN'S AT THIS TIME.
[2017-07-10] VITALS: BP 159/95; BP 165/92
--- NOTE | 2017-07-10 01:00 | NUR ---
PT RESTING QUIETLY IN BED. PRN TYLENOL EFFECTIVE FOR PAIN RELIEF.
--- NOTE | 2017-07-10 04:32 | NUR ---
24 HR chart check completed.
[2017-07-10 08:00] VITALS: BP 142/98
[2017-07-10 12:00] VITALS: BP 132/98
[2017-07-10 16:00] VITALS: BP 142/92
--- NOTE | 2017-07-10 19:57 | NUR ---
PT. RESTING IN BED. AMBULATING IN HALLS, GAIT UNSTEADY. INSTRUCTED PT TO CALL FOR ASSISTANCE PRIOR TO AMBULATING. REMAINS ALERT AND ORIENTED x3. NO HEP LOCK NOTED. LUNGS DIMINISHED BUT CLEAR BILAT. ABDOMEN SOFT NONDISTENDED AND NORMO. NO PERIPHERAL EDEMA NOTED. STATED HE WAS REFUSING LIBRIUM BECAUSE IT MADE HIM FEEL FUNNY AND MADE IT DIFFICULT TO WALK. EXPLAINED PURPOSE OF TAPERING LIBRIUM WITH ALCOHOLIC DETOX. PT. AGREED TO TAKE MIDNIGHT DOSE HE WAS GOING TO GO TO BED ANYWAY. STEWART SINGER RN
[2017-07-10 20:00] VITALS: BP 143/88
--- NOTE | 2017-07-10 21:35 | NUR ---
PT. GIVEN LIBRIUM, BENTYL, DYSREL AND ROBAXIN ORDERED FOR DT'S, CRAMPS, SLEEP AIDE.
--- NOTE | 2017-07-10 23:15 | NUR ---
PT. SLEEPING, LIBRIUM, BENTYL, DYSEREL AND ROBAXIN EFFECTIVE.
[2017-07-11] VITALS: BP 115/81
[2017-07-11 04:00] VITALS: BP 124/78
--- NOTE | 2017-07-11 06:19 | NUR ---
PT. GIVEN VISTARIL, ROBAXIN AND BENTYL FOR COMPLAINTS OF ANXIETY AND CRAMPING. STEWART SINGER RN
[2017-07-11 06:50] LABS: BASO % 0.5 % (0.0-1.0); EOS # 0.2 10*3/uL (0.0-0.4); HEMATOCRIT 39.9 % (42.0-52.0); HEMOGLOBIN 13.4 g/dl (14.0-18.0); LYMPH # 1.7 10*3/uL (1.3-4.4); LYMPH % 29.3 % (27.0-41.0); MEAN CELL VOLUME 98.5 fl (80.0-94.0); MEAN CORPUSCULAR HGB 33.1 pg (27.0-31.0); MEAN CORPUSCULAR HGB CONC 33.6 g/dl (33.0-37.0); MONO # 0.6 10*3/uL (0.1-1.0); NEUT # 3.2 10*3/uL (2.3-7.9); PLATELET COUNT AUTOMATED 91 10*3/uL (130-400); RED BLOOD COUNT 4.05 10*6/uL (4.50-5.90); RED CELL DISTRI WIDTH 12.9 % (0-14.5); WHITE BLOOD COUNT 5.8 10*3/uL (4.8-10.8)
[2017-07-11 07:16] LABS: ALBUMIN 3.2 gm/dl (3.1-4.5); ALKALINE PHOSPHATASE 95 U/L (45-117); BUN 8 mg/dl (7-24); CHLORIDE 101 mmol/L (98-107); CREATININE 0.69 mg/dL (0.70-1.30); POTASSIUM 3.9 mmol/L (3.5-5.1); SGOT/AST 87 IU/L (3-35); SGPT/ALT 78 U/L (12-78); SODIUM 135 mmol/L (136-145); TOTAL PROTEIN 7.2 gm/dL (6.4-8.2)
[2017-07-11 08:00] VITALS: BP 114/60
--- NOTE | 2017-07-11 08:00 | NUR ---
Shift chart check completed.24 HR chart check completed. Patient awakened from sound sleep for his last scheduled dose of Librium. He was diophoretic. Denied any pain. He did state that he thought he had "breathing treatments ordered". They are prn. RT Bruna Sapp notified patient asking for one. No tremors noted. He denies visual or auditory hallucinations. "Only my dreams". Will continue to monitor.
--- NOTE | 2017-07-11 09:08 | NUR ---
LAURA WHITMORE [employer] WORK[employer] HAS VISITED. PT TO BE DISCHARGED. RADIOLOGY IS MAKING A DISC OF HIS MRI.
--- NOTE | 2017-07-11 10:40 | NUR ---
DISCHARGE INSTRUCTIONS TO PT. MONITOR REMOVED.
--- NOTE | 2017-07-11 10:46 | NUR ---
DISCHARGED IN STABLE CONDITION VIA W/C TO [facility] WHERE HE HAD CALLED A CAB TO PICK HIM UP.
== END 2017-07-11 10:46 | disposition home or self-care (01) | DRG 433 ==
LOC: ED 14:18 → EDHOLD 15:35 → 4E 15:35 → EDHOLD 15:35 → 4E 15:42
PROVIDERS: Emergency Medicine; Registered Nurse; Student in an Organized Health Care Education/Training Program; ADMIT Internal Medicine
DX: K70.10 Alcoholic hepatitis without ascites (principal); E44.0 Moderate protein-calorie malnutrition; K70.9 Alcoholic liver disease, unspecified; D69.6 Thrombocytopenia, unspecified; E83.51 Hypocalcemia; E87.1 Hypo-osmolality and hyponatremia; D72.810 Lymphocytopenia; R73.9 Hyperglycemia, unspecified; K21.9 Gastro-esophageal reflux disease without esophagitis; D53.9 Nutritional anemia, unspecified; I10 Essential (primary) hypertension; E03.9 Hypothyroidism, unspecified; E55.9 Vitamin D deficiency, unspecified; R00.0 Tachycardia, unspecified; M54.40 Lumbago with sciatica, unspecified side; R74.0 Nonspecific elevation of levels of transaminase and lactic acid dehydrogenase [LDH]; G89.29 Other chronic pain; F10.120 Alcohol abuse with intoxication, uncomplicated; Z88.0 Allergy status to penicillin; Z88.8 Allergy status to other drugs, medicaments and biological substances; Z79.899 Other long term (current) drug therapy; Z82.49 Family history of ischemic heart disease and other diseases of the circulatory system; Z71.6 Tobacco abuse counseling; Z79.82 Long term (current) use of aspirin; Z68.21 Body mass index [BMI] 21.0-21.9, adult; Z72.0 Tobacco use

== ENCOUNTER 2017-08-07 15:21 | Emergency (ER) | payer OTHER ==
[~2017-08-07] VITALS: Ht 180.3 cm; Wt 73.5 kg
[2017-08-07] MEDS ORDERED: PREDNISONE10 MG PO (16:19)
== END 2017-08-07 16:22 | disposition home or self-care (01) ==
LOC: ED 15:21
DX: G89.29 Other chronic pain (principal); M54.9 Dorsalgia, unspecified; F17.200 Nicotine dependence, unspecified, uncomplicated; Z88.0 Allergy status to penicillin; Z88.8 Allergy status to other drugs, medicaments and biological substances; Z79.899 Other long term (current) drug therapy

== ENCOUNTER 2019-06-10 14:18 | Inpatient (IN) | payer MEDICAID ==
[~2019-06-10] VITALS: Ht 180.3 cm; Wt 65.5 kg
[~2019-06-10 14:18] MED LIST changes: +ATARAX,VISTARIL50 MG PO; +CYCLOBENZAPRINE10 MG PO; +HYDROCHLOROTH12.5 M3 PO; +PREDNISONE10 MG PO; +VITAMIN D32000 UNI1 PO
[2019-06-10 14:23] VITALS: BP 144/78
[2019-06-10 15:14] LABS: BASO # 0.1 10*3/uL (0.0-0.1); BASO % 1.4 % (0.0-1.0); EOS % 0.6 % (1.0-4.0); HEMOGLOBIN 13.6 g/dl (14.0-18.0); LYMPH % 38.7 % (27.0-41.0); MEAN CELL VOLUME 95.1 fl (80.0-94.0); MEAN CORPUSCULAR HGB 31.6 pg (27.0-31.0); MEAN CORPUSCULAR HGB CONC 33.2 g/dl (33.0-37.0); MEAN PLATELET VOLUME 9.4 fl (9.6-12.3); MONO # 0.6 10*3/uL (0.1-1.0); MONO % 12.2 % (3.0-9.0); NEUT # 2.4 10*3/uL (2.3-7.9); NEUT % 46.7 % (47.0-73.0); PLATELET COUNT AUTOMATED 112 10*3/uL (130-400); RED BLOOD COUNT 4.31 10*6/uL (4.50-5.90); WHITE BLOOD COUNT 5.2 10*3/uL (4.8-10.8)
[2019-06-10 15:26] LABS: ACT PARTIAL THROMBO TIME 26.3 SECONDS (20.0-32.1)
[2019-06-10 15:41] LABS: ALBUMIN 3.6 gm/dl (3.1-4.5); ALKALINE PHOSPHATASE 135 U/L (45-117); BUN 3 mg/dl (7-24); CHLORIDE 98 mmol/L (98-107); CREATININE 0.68 mg/dL (0.70-1.30); POTASSIUM 3.5 mmol/L (3.5-5.1); SGOT/AST 227 IU/L (3-35); SGPT/ALT 69 U/L (12-78); SODIUM 133 mmol/L (136-145); TOTAL PROTEIN 8.5 gm/dL (6.4-8.2)
[2019-06-10 15:48] LABS: BILIRUBIN NEGATIVE (NEGATIVE); BLOOD NEGATIVE (NEGATIVE); CLARITY CLEAR (CLEAR); COLOR YELLOW (YELLOW); GLUCOSE NEGATIVE (NEGATIVE); KETONE NEGATIVE (NEGATIVE); LEUKO ESTERASE NEGATIVE (NEGATIVE); NITRITE NEGATIVE (NEGATIVE); UROBILINOGEN 0.2 E.U./dl (0.2-1.0)
[2019-06-10 15:54] LABS: HYALINE CAST 31-40
[2019-06-10 17:40] VITALS: BP 155/92
--- NOTE | 2019-06-10 17:40 | NUR ---
A 53, admitted to , under the services of ADRIEL Pathak DO with a diagnosis of ETOH ABUSE, ETOH INTOX, RECTAL BLEEDING. Chief complaint is ANAL BLEEDING. Patient arrived via wheel chair from ER. Monitor applied. Initial assessment completed. Vital signs taken and recorded. ADRIEL PATHAK DO notified of admission to the unit. Orders received. See assessment for past medical history, medications and allergies. Patient and/or family oriented to unit. [facility] visitation policy reviewed. Clothing/patient valuable form completed. TUYET POSEY
--- NOTE | 2019-06-10 18:48 | NUR ---
ATTEMPTS TO REACH DR DE JESUS REGARDING NEW CONSULT. LOST CONNECTION. AWAITING CALL BACK.
[2019-06-10 20:00] VITALS: BP 124/83
--- NOTE | 2019-06-10 20:35 | NUR ---
24 HR chart check completed.
--- NOTE | 2019-06-10 20:45 | NUR ---
RESTING IN BED. RESPIRATIONS EASY. LUNGS DIMINISHED, CLEAR. PULSE OX 97% RA. PATIENT NOTED TO HAVE SUTURES TO SCROTUM; UNSURE WHAT PROCEDURE, DR, OR WHERE PROCEDURE WAS PERFORMED. OFFERED AND EDUCATED REGARDING TEDS, DECLINED TO WEAR BUT TEDS PLACED AT BEDSIDE. CALL LIGHT WITHIN REACH.
--- NOTE | 2019-06-10 20:54 | NUR ---
MEDICATED WITH TYLENOL PER PRN ORDER FOR COMPLAINTS OF HEADACHE RATING A 5. CALL LIGHT WITHIN REACH. WILL MONITOR FOR EFFECTIVENESS
--- NOTE | 2019-06-10 21:30 | NUR ---
DR NICHOLSON CONTACTED REGARDING PATIENT ADMITTING TO DRINKING DAILY. WHEN QUESTIONED REGARDING AMOUNT, PATIENT STATES "ALOT." PATIENT GOES ON TO SAY AT LEAST 4 40 OZ BEERS DAILY AND THAT HE HAS WENT THROUGH DT'S IN THE PAST, INFO RELAYED TO ALSO INFORMED OF SUTURES TO PENIS. DR YOUSIF ENTER NEW ORDERS
[2019-06-10 22:00] LABS: HEMATOCRIT 37.3 % (42.0-52.0); HEMOGLOBIN 12.4 g/dl (14.0-18.0)
--- NOTE | 2019-06-10 22:00 | NUR ---
STATES RELIEF FROM EARLIER TYLENOL
[2019-06-11] VITALS: BP 130/86
--- NOTE | 2019-06-11 01:00 | NUR ---
PATIENT TRANSPORTED OFF FLOOR TO CT
--- NOTE | 2019-06-11 02:00 | NUR ---
SLEEPING. NO DISTRESS NOTED
[2019-06-11 02:11] LABS: HEMATOCRIT 36.9 % (42.0-52.0); HEMOGLOBIN 12.4 g/dl (14.0-18.0)
--- NOTE | 2019-06-11 06:00 | NUR ---
SLEPT THROUGHOUT NIGHT WITH NO DISTRESS NOTED. RESPIRATIONS EASY. NO ACTIVE BLEED. CALL LIGHT WITHIN REACH. NO VOICED COMPLAINTS THIS SHIFT
[2019-06-11 06:12] LABS: BASO # 0.1 10*3/uL (0.0-0.1); BASO % 1.3 % (0.0-1.0); EOS # 0.1 10*3/uL (0.0-0.4); EOS % 1.1 % (1.0-4.0); HEMATOCRIT 38.9 % (42.0-52.0); HEMOGLOBIN 12.8 g/dl (14.0-18.0); LYMPH # 1.7 10*3/uL (1.3-4.4); LYMPH % 37.1 % (27.0-41.0); MEAN CELL VOLUME 95.3 fl (80.0-94.0); MEAN CORPUSCULAR HGB 31.4 pg (27.0-31.0); MEAN CORPUSCULAR HGB CONC 32.9 g/dl (33.0-37.0); MEAN PLATELET VOLUME 10.2 fl (9.6-12.3); MONO # 0.8 10*3/uL (0.1-1.0); MONO % 17.5 % (3.0-9.0); NEUT % 42.8 % (47.0-73.0); PLATELET COUNT AUTOMATED 111 10*3/uL (130-400); RED BLOOD COUNT 4.08 10*6/uL (4.50-5.90); RED CELL DISTRI WIDTH 16.1 % (0-14.5); WHITE BLOOD COUNT 4.6 10*3/uL (4.8-10.8)
[2019-06-11 06:22] LABS: ALBUMIN 3.5 gm/dl (3.1-4.5); ALKALINE PHOSPHATASE 128 U/L (45-117); BUN 4 mg/dl (7-24); CHLORIDE 98 mmol/L (98-107); CREATININE 0.75 mg/dL (0.70-1.30); PHOSPHOROUS 4.2 mg/dL (2.5-4.9); POTASSIUM 3.6 mmol/L (3.5-5.1); SGOT/AST 210 IU/L (3-35); SGPT/ALT 65 U/L (12-78); SODIUM 134 mmol/L (136-145)
[2019-06-11 08:00] VITALS: BP 146/90
--- NOTE | 2019-06-11 08:02 | NUR ---
RESIDENT IN TO SEE PATIENT AT THIS TIME.
--- NOTE | 2019-06-11 09:38 | NUR ---
PT GIVEN PO TYLENOL PER PRN ORDER FOR C/O HEADACHE. WILL MONITOR EFFECTIVENESS.
--- NOTE | 2019-06-11 10:30 | NUR ---
CALLED REGARDING DIET ORDER. OKAY FOR PATIENT TO HAVE REGULAR DIET.
--- NOTE | 2019-06-11 11:01 | NUR ---
ORTHOS PERFORMED PER ORDER. LAYING BP 153/84. HR 76. SITTING BP 141/90. HR 95. STANDING BP 129/87. HR 118. PT STATES HE IS DIZZY WITH STANDING. WILL NOTIFY PHYSICIAN.
--- NOTE | 2019-06-11 11:03 | NUR ---
NOTIFIED REGARDING ORTHO RESULTS.
[2019-06-11 12:00] VITALS: BP 149/94
--- NOTE | 2019-06-11 12:27 | NUR ---
Waste Picker in to talk to patient. Patient states lives at home with uncle. There are few steps in the home. Physician: bonny landrum Pharmacy: [facility] Home health services: none Patient's level of ADLs: INDEPENDENT Patient has working utilities: all working DME: none Follow-up physician's appointment after d/c: will be made by hospsitlist nurse director upon discharge Does patient want to access PORTAL?: no Discharge plan discussed with patient, he states he lives at home with his uncle, he is independent in adls and ambulation, works, but doesn't drive, he has a daughter that takes him to the grocery store or where ever he needs to go, he states he will return home when able and denies any home needs, case management will follow. CHET GUAMAN
--- NOTE | 2019-06-11 13:01 | NUR ---
IN TO SEE PATIENT.
--- NOTE | 2019-06-11 14:00 | NUR ---
PATIENT RESTING QUIETLY IN BED. NO DISTRESS NOTED. NO VOICED COMPLAINTS. WILL CONTINUE TO MONITOR.
[2019-06-11 16:00] VITALS: BP 153/78
[2019-06-11 20:00] VITALS: BP 156/92
--- NOTE | 2019-06-11 20:30 | NUR ---
IN TO ASSESS PATIENT, PATIENT RESTING IN BED. PLEASANT AND COOPERATIVE. FLAT AFFECT. DIMINISHED LUNGS ON ROOM AIR. DENIES SOB, DENIES CP, MORMOACTIVE BOWELS X4 QUADS. DENIES N/V/D/C. STATES HE HAS NOT HAD A BLOODY BOWEL MOVEMENT TODAY. NO EDEMA NOTED. DENIES DYSURIA. URINE DARK JAYLA IN URINAL. IV FLUIDS INFUSING. PATIENT STATES HE OFF AND ON GETS THE SHAKES, NO TREMORS NOTED AT THIS TIME. CALL LIGHT WITHIN REACH, AILYN MONITOR
[2019-06-12] VITALS: BP 146/84; BP 155/96
--- NOTE | 2019-06-12 03:24 | NUR ---
PT SLEEPING, NO DISTRESS NOTED. CALL LIGHT WITHIN REACH, WLL MALATHI
--- NOTE | 2019-06-12 06:08 | NUR ---
24 HR chart check completed.
[2019-06-12 07:17] LABS: HEMATOCRIT 36.7 % (42.0-52.0); HEMOGLOBIN 12.1 g/dl (14.0-18.0)
[2019-06-12 08:00] VITALS: BP 150/97
--- NOTE | 2019-06-12 08:35 | NUR ---
PT SITTING UP IN BED. RESPIRATIONS EASY, REGULAR. PT ALERT/ORIENTED X3. NO TREMORS NOTED. ROUTINE ATIVAN GIVEN AT THIS TIME. NO VOICED COMPLAINTS. WILL CONTINUE TO MONITOR. SEE SHIFT ASSESSMENT.
--- NOTE | 2019-06-12 08:44 | NUR ---
NOTIFIED REGARDING AM LABS. NEW ORDERS RECEIVED.
--- NOTE | 2019-06-12 09:00 | NUR ---
case management visits with patient, he states he will be returning home when able and denies any home needs
--- NOTE | 2019-06-12 09:09 | NUR ---
ORTHO'S PERFORMED PER ORDER. LAYING BP 131/92. HR 94. SITTING BP 136/89. HR 109. STANDING BP 107/85. HR 122. PT SYMPTOMATIC. WILL NOTIFY PHYSICIAN.
--- NOTE | 2019-06-12 09:28 | NUR ---
NOTIFIED REGARDING POSITIVE ORTHO'S.
[2019-06-12] MEDS ORDERED: ANUSOL-HC25 MG R (11:11)
--- NOTE | 2019-06-12 11:27 | NUR ---
Discharge instructions reviewed with patient/family. Patient receptive and verbalizes understanding. Follow-up care arranged. Written instructions given to patient/family. DEANNA OMALLEY.
== END 2019-06-12 11:27 | disposition home or self-care (01) | DRG 394 ==
LOC: ED 14:18 → 4E 17:06 → EDHOLD 17:06 → 4E 17:29
PROVIDERS: Emergency Medicine; Family Medicine; Internal Medicine Gastroenterology; Student in an Organized Health Care Education/Training Program; ADMIT Internal Medicine
DX: K64.2 Third degree hemorrhoids (principal); E87.1 Hypo-osmolality and hyponatremia; F10.129 Alcohol abuse with intoxication, unspecified; J44.9 Chronic obstructive pulmonary disease, unspecified; I10 Essential (primary) hypertension; K21.9 Gastro-esophageal reflux disease without esophagitis; R74.0 Nonspecific elevation of levels of transaminase and lactic acid dehydrogenase [LDH]; D69.6 Thrombocytopenia, unspecified; Y90.9 Presence of alcohol in blood, level not specified; I25.84 Coronary atherosclerosis due to calcified coronary lesion; E83.42 Hypomagnesemia; E03.9 Hypothyroidism, unspecified; F17.210 Nicotine dependence, cigarettes, uncomplicated; D53.9 Nutritional anemia, unspecified; Z88.0 Allergy status to penicillin; Z88.8 Allergy status to other drugs, medicaments and biological substances; Z82.49 Family history of ischemic heart disease and other diseases of the circulatory system; Z79.82 Long term (current) use of aspirin; Z71.6 Tobacco abuse counseling

== ENCOUNTER 2020-04-18 15:07 | Inpatient (IN) | payer MEDICAID ==
--- NOTE | 2020-04-17 22:50 | NUR ---
A 54, admitted to , under the services of TYLER Hart DO with a diagnosis of PUI COVID-19. Chief complaint is SOB, N/V. Patient arrived via bed from ER. Monitor applied. Initial assessment completed. Vital signs taken and recorded. TYLER HART DO notified of admission to the unit. Orders received. See assessment for past medical history, medications and allergies. Patient and/or family oriented to unit. [facility] visitation policy reviewed. Clothing/patient valuable form completed. ALMAS SAENZ
[~2020-04-18] VITALS: Ht 180.3 cm; Wt 66.0 kg
[~2020-04-18 15:07] MED LIST changes: +ANUSOL-HC25 MG R
[2020-04-18 15:11] VITALS: BP 145/96
[2020-04-18 15:39] LABS: BASO % 0.6 % (0.0-1.0); EOS % 0.3 % (1.0-4.0); HEMATOCRIT 34.3 % (42.0-52.0); LYMPH # 1.3 10*3/uL (1.3-4.4); LYMPH % 17.8 % (27.0-41.0); MEAN CELL VOLUME 94.8 fl (80.0-94.0); MEAN CORPUSCULAR HGB 33.1 pg (27.0-31.0); MEAN PLATELET VOLUME 9.4 fl (9.6-12.3); MONO # 0.9 10*3/uL (0.1-1.0); NEUT # 4.9 10*3/uL (2.3-7.9); NEUT % 68.6 % (47.0-73.0); NUCLEATED RED BLOOD CELL 0.1 10*3/uL (0.0-0.0); NUCLEATED RED BLOOD CELL 0.7 % (0.0-0.0); PLATELET COUNT AUTOMATED 145 10*3/uL (130-400); RED BLOOD COUNT 3.62 10*6/uL (4.50-5.90); RED CELL DISTRI WIDTH 12.5 % (0-14.5); WHITE BLOOD COUNT 7.2 10*3/uL (4.8-10.8)
[2020-04-18 15:51] LABS: INTERNATIONAL NORM RATIO 1.1 (2.0-3.5)
[2020-04-18 15:56] LABS: ALBUMIN 2.8 gm/dl (3.1-4.5); ALKALINE PHOSPHATASE 97 U/L (45-117); BUN 4 mg/dl (7-24); CHLORIDE 84 mmol/L (98-107); LIPASE 52 U/L (73-393); POTASSIUM 3.6 mmol/L (3.5-5.1); SGOT/AST 81 IU/L (3-35); SGPT/ALT 30 U/L (12-78); TOTAL PROTEIN 7.8 gm/dL (6.4-8.2)
[2020-04-18 16:00] LABS: SODIUM 118 mmol/L (136-145); TROPONIN I < 0.015 ng/ml (<0.045)
[2020-04-18 16:30] LABS: BILIRUBIN NEGATIVE (NEGATIVE); BLOOD NEGATIVE (NEGATIVE); CLARITY SL CLOUDY (CLEAR); COLOR ORANGE (YELLOW); GLUCOSE NEGATIVE (NEGATIVE); KETONE TRACE (NEGATIVE); LEUKO ESTERASE NEGATIVE (NEGATIVE); NITRITE NEGATIVE (NEGATIVE); PH 6.5 (5.0-9.0); SPECIFIC GRAVITY 1.005 (1.005-1.030)
[2020-04-18 16:37] LABS: BACTERIA TRACE; EPITHELIAL CELLS 0-2; RBC 0-2 rbc/hpf (0-2); WBC 0-2 wbc/hpf (0-5)
--- NOTE | 2020-04-18 17:05 | NUR ---
Frank Estrella called in stating that Adrian lives with him , stated he arrived home and the neighbors informed him that Adrian had been taken to the hospital. Contact phone # [phone]
--- NOTE | 2020-04-18 20:34 | NUR ---
SPOKE WITH AUSTIN COBURN THAT WILL BE RECEIVING PATIENT AND SHE WILL CALL THIS RN WHEN ROOM IS READY.
[2020-04-18 21:31] LABS: BUN 3 mg/dl (7-24); CHLORIDE 89 mmol/L (98-107); CREATININE 0.54 mg/dL (0.70-1.30); POTASSIUM 3.5 mmol/L (3.5-5.1); SODIUM 120 mmol/L (136-145)
--- NOTE | 2020-04-18 22:15 | NUR ---
PATIENT DENIES ANY OPEN AREAS AT THIS TIME. PATIENT REQUESTING TO LEAVE PANTS ON UNTIL HE GETS UPSTAIRS TO HIS ROOM. 2 SMALL BRUISES NOTED TO RIGHT TRICEP.
[2020-04-18 22:28] VITALS: BP 121/83
--- NOTE | 2020-04-18 22:35 | NUR ---
CHECKED PATIENTS FEET AT THIS TIME AFTER TAKING PATIENT TO FLOOR AND HELPED PATIENT REMOVE PANTS. NO OPEN AREAS NOTED TO FEET, LEGS, ABDOMEN OR BACK AT THIS TIME.
--- NOTE | 2020-04-18 22:50 | NUR ---
ADMISSION ASSESSMENT/DATA OCCURRED AT 2250 NOT 2350.
--- NOTE | 2020-04-18 23:00 | NUR ---
DR. HILLS MADE AWARE OF UP TO DATE HOME MEDICATIONS.
--- NOTE | 2020-04-18 23:04 | NUR ---
DR. FINNEY NOTIFIED OF CONSULT. OKAYED FLUIDS FOR NOW. WILL BE IN TOMORROW TO SEE PT.
--- NOTE | 2020-04-18 23:07 | NUR ---
DR. SPENCER'S ANSWERING NOTIFIED OF CONSULT
--- NOTE | 2020-04-18 23:20 | NUR ---
DR. REINIER HIDALGOED RETIMING OF ATIVAN. WILL GET NEXT SCHEDULED DOSE AT 0200, NOT 0000.
[2020-04-18 23:50] VITALS: BP 113/78
[2020-04-19] VITALS: BP 120/88
--- NOTE | 2020-04-19 00:44 | NUR ---
PT SLEEPING AT THIS TIME. IV FLUIDS INFUSING WITHOUT DIFFICULTY
--- NOTE | 2020-04-19 02:32 | NUR ---
PT ASLEEP. RESPIRATIONS EASY AND UNLABORED. IV FLUIDS INFUSING WITHOUT DIFFICULTY. CALL LIGHT WITHIN REACH
[2020-04-19 06:31] LABS: BASO % 0.6 % (0.0-1.0); EOS # 0.1 10*3/uL (0.0-0.4); EOS % 1.6 % (1.0-4.0); HEMATOCRIT 33.6 % (42.0-52.0); LYMPH # 1.4 10*3/uL (1.3-4.4); LYMPH % 27.8 % (27.0-41.0); MEAN CELL VOLUME 96.6 fl (80.0-94.0); MEAN CORPUSCULAR HGB CONC 34.2 g/dl (33.0-37.0); MEAN PLATELET VOLUME 9.5 fl (9.6-12.3); MONO # 0.7 10*3/uL (0.1-1.0); MONO % 14.2 % (3.0-9.0); NEUT # 2.8 10*3/uL (2.3-7.9); NUCLEATED RED BLOOD CELL 0.8 % (0.0-0.0); PLATELET COUNT AUTOMATED 142 10*3/uL (130-400); RED BLOOD COUNT 3.48 10*6/uL (4.50-5.90); RED CELL DISTRI WIDTH 12.8 % (0-14.5); WHITE BLOOD COUNT 5.2 10*3/uL (4.8-10.8)
[2020-04-19 07:10] LABS: ALBUMIN 2.5 gm/dl (3.1-4.5); ALKALINE PHOSPHATASE 84 U/L (45-117); BUN 4 mg/dl (7-24); CHLORIDE 94 mmol/L (98-107); CHOLESTEROL 67 mg/dL (<200); CREATININE 0.59 mg/dL (0.70-1.30); HDL CHOLESTEROL 11 mg/dl (40-60); LDL CHOLESTEROL 39 mg/dL (9-159); POTASSIUM 3.9 mmol/L (3.5-5.1); SGOT/AST 61 IU/L (3-35); SGPT/ALT 25 U/L (12-78); SODIUM 127 mmol/L (136-145); TOTAL PROTEIN 6.8 gm/dL (6.4-8.2); TRIGLYCERIDES 83 mg/dl (<150); VLDL CHOLESTEROL 17 mg/dL (6-40)
[2020-04-19 08:00] VITALS: BP 100/80
[2020-04-19 08:10] LABS: VITAMIN D, 25-HYDROXY 99.9 ng/mL (30-100)
--- NOTE | 2020-04-19 10:30 | NUR ---
PATIENT BLADDERSCANED FOR 273 CC OF URINE. DENIES DISCOMFORT. WILL MONITOR URINE OUTPUT.
[2020-04-19 12:00] VITALS: BP 116/81
--- NOTE | 2020-04-19 12:17 | NUR ---
Stove Tender in to talk to patient. Patient states lives at home with faily. There are no steps in the home. Physician: bonny landrum Pharmacy: [facility] Home health services: none Patient's level of ADLs: INDEPENDENT Patient has working utilities: all working DME: none Follow-up physician's appointment after d/c: will be made by hospitalist nruse director upon discharge Does patient want to access PORTAL?: no Discharge plan discussed with patient, he lives at home, is independent in adls and ambulation, he will return home when discharged and denies any home needs, case management will follow. CHET GUAMAN
--- NOTE | 2020-04-19 14:00 | NUR ---
DR NICOLAS MADE AWARE THAT PATIENT REFUSES TO WEAR HIS DISTRICT FIRE CHIEF AND PULSE OX AT THIS TIME.
[2020-04-19 16:00] VITALS: BP 119/73
--- NOTE | 2020-04-19 19:30 | NUR ---
REPORT RECEIVED. PT SLEEPING AT THIS TIME. VOICES NO COMPLAINTS. STILL REFUSING HEART MONITOR AT THIS TIME AND PULSE OX. EDUCATED ON IMPORTANCE. CALL LIGHT IN REACH
[2020-04-19 20:00] VITALS: BP 132/81
--- NOTE | 2020-04-19 22:00 | NUR ---
IN TO SEE PT. PT ASLEEP. NO COMPLAINTS, CALL LIGHT IN REACH
[2020-04-20] VITALS: BP 127/83
--- NOTE | 2020-04-20 01:52 | NUR ---
24 HR chart check completed.
--- NOTE | 2020-04-20 03:00 | NUR ---
PT ASLEEP AT THIS TIME. RESPIRATIONS EASY AND UNLABORED. CALL LIGHT IN REACH
[2020-04-20 07:02] LABS: BASO % 0.6 % (0.0-1.0); EOS # 0.1 10*3/uL (0.0-0.4); HEMATOCRIT 30.1 % (42.0-52.0); LYMPH # 1.5 10*3/uL (1.3-4.4); LYMPH % 28.9 % (27.0-41.0); MEAN CELL VOLUME 98.4 fl (80.0-94.0); MEAN CORPUSCULAR HGB 33.7 pg (27.0-31.0); MEAN CORPUSCULAR HGB CONC 34.2 g/dl (33.0-37.0); MEAN PLATELET VOLUME 9.6 fl (9.6-12.3); MONO # 0.8 10*3/uL (0.1-1.0); MONO % 15.6 % (3.0-9.0); NEUT # 2.8 10*3/uL (2.3-7.9); NEUT % 53.3 % (47.0-73.0); NUCLEATED RED BLOOD CELL 0.8 % (0.0-0.0); PLATELET COUNT AUTOMATED 147 10*3/uL (130-400); RED BLOOD COUNT 3.06 10*6/uL (4.50-5.90); RED CELL DISTRI WIDTH 12.9 % (0-14.5); WHITE BLOOD COUNT 5.3 10*3/uL (4.8-10.8)
[2020-04-20 07:30] LABS: ALBUMIN 2.4 gm/dl (3.1-4.5); ALKALINE PHOSPHATASE 75 U/L (45-117); BUN 5 mg/dl (7-24); CHLORIDE 95 mmol/L (98-107); CREATININE 0.43 mg/dL (0.70-1.30); LDH 178 U/L (87-241); POTASSIUM 3.7 mmol/L (3.5-5.1); SGOT/AST 63 IU/L (3-35); SGPT/ALT 23 U/L (12-78); SODIUM 125 mmol/L (136-145); TOTAL PROTEIN 6.3 gm/dL (6.4-8.2)
[2020-04-20 07:31] LABS: CPK 28 U/L (39-308)
[2020-04-20 08:00] VITALS: BP 117/77
--- NOTE | 2020-04-20 09:00 | NUR ---
patient will return home when discharged and denied any home needs
--- NOTE | 2020-04-20 10:49 | NUR ---
24HR CHART CHECK COMPLETED.
[2020-04-20 12:00] VITALS: BP 115/77
[2020-04-20 16:00] VITALS: BP 135/92
--- NOTE | 2020-04-20 16:53 | NUR ---
DR. MIRANDA HERE TO SEE PATIENT
--- NOTE | 2020-04-20 19:35 | NUR ---
REPORT RECEIVED. PT SLEEPING. IV INFUSING WITHOUT DIFFICULTY. CALL LIGHT IN REACH
[2020-04-20 20:00] VITALS: BP 135/89
--- NOTE | 2020-04-20 21:00 | NUR ---
IN TO SEE PT. IV OUT AT THIS TIME. NEW IV INSERTED INTO LEFT FOREARM. #22. IV FLUIDS RESTARTED AT THIS TIME.
[2020-04-21] VITALS: BP 146/86
--- NOTE | 2020-04-21 01:21 | NUR ---
PT SLEEPING AT THIS TIME. NO S/S OF DISTRESS NOTED. CALL LIGHT IN REACH
--- NOTE | 2020-04-21 03:30 | NUR ---
PT SLEEPING AT THIS TIME. NO S/S OF DISTRESS. 99% ON ROOM AIR. CALL LIGHT IN REACH
[2020-04-21 05:47] LABS: ALBUMIN 2.2 gm/dl (3.1-4.5); BUN 3 mg/dl (7-24); CHLORIDE 95 mmol/L (98-107); CREATININE 0.46 mg/dL (0.70-1.30); LDH 174 U/L (87-241); POTASSIUM 3.8 mmol/L (3.5-5.1); SGOT/AST 65 IU/L (3-35); SGPT/ALT 27 U/L (12-78); SODIUM 125 mmol/L (136-145)
[2020-04-21 05:48] LABS: ALKALINE PHOSPHATASE 73 U/L (45-117); CPK 23 U/L (39-308)
[2020-04-21 06:23] LABS: BASO % 0.6 % (0.0-1.0); EOS # 0.1 10*3/uL (0.0-0.4); EOS % 1.4 % (1.0-4.0); HEMATOCRIT 29.4 % (42.0-52.0); LYMPH # 1.5 10*3/uL (1.3-4.4); LYMPH % 30.1 % (27.0-41.0); MEAN CELL VOLUME 98.7 fl (80.0-94.0); MEAN CORPUSCULAR HGB 33.2 pg (27.0-31.0); MEAN CORPUSCULAR HGB CONC 33.7 g/dl (33.0-37.0); MONO # 0.8 10*3/uL (0.1-1.0); MONO % 15.7 % (3.0-9.0); NEUT # 2.5 10*3/uL (2.3-7.9); NEUT % 51.6 % (47.0-73.0); NUCLEATED RED BLOOD CELL 0.6 % (0.0-0.0); PLATELET COUNT AUTOMATED 156 10*3/uL (130-400); RED BLOOD COUNT 2.98 10*6/uL (4.50-5.90); RED CELL DISTRI WIDTH 12.7 % (0-14.5); WHITE BLOOD COUNT 4.9 10*3/uL (4.8-10.8)
--- NOTE | 2020-04-21 06:30 | NUR ---
PT ASLEEP AT THIS TIME,
--- NOTE | 2020-04-21 07:41 | NUR ---
24HR CHART CHECK COMPLETE.
[2020-04-21 08:00] VITALS: BP 140/95
--- NOTE | 2020-04-21 09:00 | NUR ---
case management talks with patient he states he will be returning home when discharge, he denies any home needs, patient is a possibly discharge today
[2020-04-21 12:00] VITALS: BP 140/90
[2020-04-21 16:00] VITALS: BP 134/85
--- NOTE | 2020-04-21 16:26 | NUR ---
MEDICATED WITH PRN ZOFRAN PER PATIENT REQUEST FOR CO NAUSEA. WILL ASSESS EFFECTIVENESS.
--- NOTE | 2020-04-21 16:30 | NUR ---
PATIENT STATES HE DOES NOT FEEL GOOD ENOUGH TO LEAVE. HE STATES HE FEELS WORSE THAN WHEN HE CAME IN. HE IS NAUSEOUS, STILL HAVING TROUBLE BREATHING AND HAS A COUGH. NOTIFIED AND STATES ALL DOCTORS HAVE SIGNED OFF AND TO GIVE THE PATIENT SOME ZOFRAN AND LET HIM REST FOR A LITTLE BUT THERE IS NO REASON TO KEEP PATIENT OVERNIGHT.
--- NOTE | 2020-04-21 16:59 | NUR ---
PER PATIENT DAUGHTER CANNOT PICK HIM UP UNTIL 9 PM.
--- NOTE | 2020-04-21 17:26 | NUR ---
PER PATIENT KATTY IS WORKING.
--- NOTE | 2020-04-21 21:39 | NUR ---
PATIENT STATED THAT DAUGHTER WAS STILL PICKING HIM UP AFTER WORK, STATED SHE MIGHT BE A LITTLE LATE. IV WAS REMOVED AND GAUZE APPLIED. PATIENT VOICED NO COMPLAINTS AT THIS TIME
--- NOTE | 2020-04-21 22:30 | NUR ---
PATIENT UNCLE CALLED PER REQUEST, UNABLE TO GET AHOLD OF DAUGHTER. CAB CALLED, UNCLE STATED HE WOULD PAY FOR IT. CAB WILL BE HERE IN 15 MINUTES.
--- NOTE | 2020-04-21 22:36 | NUR ---
PATIENT TAKEN TO ER DOORS TO AWAIT FOR CAB.
== END 2020-04-21 22:36 | disposition home or self-care (01) | DRG 640 ==
LOC: ED 15:07 → 4E 19:29 → EDHOLD 19:29 → 4E 20:48
PROVIDERS: Internal Medicine; Internal Medicine Critical Care Medicine; Physician Assistant; ADMIT Internal Medicine
DX: E87.1 Hypo-osmolality and hyponatremia (principal); J18.9 Pneumonia, unspecified organism; E44.0 Moderate protein-calorie malnutrition; K52.9 Noninfective gastroenteritis and colitis, unspecified; E87.2 Acidosis; D53.9 Nutritional anemia, unspecified; E87.8 Other disorders of electrolyte and fluid balance, not elsewhere classified; R70.0 Elevated erythrocyte sedimentation rate; R74.0 Nonspecific elevation of levels of transaminase and lactic acid dehydrogenase [LDH]; E80.6 Other disorders of bilirubin metabolism; R00.0 Tachycardia, unspecified; G89.29 Other chronic pain; M54.9 Dorsalgia, unspecified; K21.9 Gastro-esophageal reflux disease without esophagitis; I10 Essential (primary) hypertension; J41.0 Simple chronic bronchitis; R73.9 Hyperglycemia, unspecified; E03.9 Hypothyroidism, unspecified; F10.20 Alcohol dependence, uncomplicated; I25.10 Atherosclerotic heart disease of native coronary artery without angina pectoris; F17.210 Nicotine dependence, cigarettes, uncomplicated; E55.9 Vitamin D deficiency, unspecified; K76.0 Fatty (change of) liver, not elsewhere classified; Z71.6 Tobacco abuse counseling; Z88.0 Allergy status to penicillin; Z88.8 Allergy status to other drugs, medicaments and biological substances; Z90.49 Acquired absence of other specified parts of digestive tract; Z82.49 Family history of ischemic heart disease and other diseases of the circulatory system; Z79.899 Other long term (current) drug therapy; Z03.818 Encounter for observation for suspected exposure to other biological agents ruled out; Z68.20 Body mass index [BMI] 20.0-20.9, adult

== ENCOUNTER 2020-09-08 15:11 | Inpatient (IN) | payer MEDICAID ==
[~2020-09-08] VITALS: Ht 180.3 cm; Wt 69.4 kg
[2020-09-08 15:14] VITALS: BP 120/77
[2020-09-08 15:57] LABS: BASO # 0.1 10*3/uL (0.0-0.1); BASO % 0.8 % (0.0-1.0); EOS % 0.3 % (1.0-4.0); HEMATOCRIT 34.9 % (42.0-52.0); LYMPH # 1.6 10*3/uL (1.3-4.4); MEAN CELL VOLUME 92.6 fl (80.0-94.0); MEAN CORPUSCULAR HGB 31.6 pg (27.0-31.0); MEAN CORPUSCULAR HGB CONC 34.1 g/dl (33.0-37.0); MONO # 1.2 10*3/uL (0.1-1.0); MONO % 15.6 % (3.0-9.0); NEUT % 62.9 % (47.0-73.0); PLATELET COUNT AUTOMATED 166 10*3/uL (130-400); RED BLOOD COUNT 3.77 10*6/uL (4.50-5.90); WHITE BLOOD COUNT 7.9 10*3/uL (4.8-10.8)
[2020-09-08 16:08] LABS: ACT PARTIAL THROMBO TIME 27.1 SECONDS (20.0-32.1); INTERNATIONAL NORM RATIO 1.1 (2.0-3.5)
[2020-09-08 16:13] LABS: ALBUMIN 3.2 gm/dl (3.1-4.5); ALKALINE PHOSPHATASE 115 U/L (45-117); BUN 3 mg/dl (7-24); CHLORIDE 97 mmol/L (98-107); CKMB < 1.0 ng/ml (0.5-3.6); CPK 124 U/L (39-308); CREATININE 0.56 mg/dL (0.70-1.30); LIPASE 97 U/L (73-393); POTASSIUM 3.7 mmol/L (3.5-5.1); SGOT/AST 93 IU/L (3-35); SGPT/ALT 40 U/L (12-78); SODIUM 127 mmol/L (136-145); TOTAL PROTEIN 7.2 gm/dL (6.4-8.2)
[2020-09-08 16:15] LABS: TROPONIN I < 0.015 ng/ml (<0.045)
[2020-09-08 19:49] VITALS: BP 116/71
--- NOTE | 2020-09-08 19:50 | NUR ---
REPORT FROM KILO AVILA.VITALS STABLE.MVI INFUSION STARTED.---CHRISTINE WELCH RN
[2020-09-08 23:17] VITALS: BP 138/72
--- NOTE | 2020-09-08 23:28 | NUR ---
PT MEDICATED WITH MORPHINE FOR C/O RT SHOULDER/ELBOW PAIN.---CHRISTINE WELCH RN
--- NOTE | 2020-09-09 00:22 | NUR ---
ALEYDA STEPHANIE GIVEN PER REQUEST.ICE TO SHOULDER. NO C/O PAIN AT THIS TIME.--CHRISTINE WELCH RN
--- NOTE | 2020-09-09 01:06 | NUR ---
PT RESTING.---CHRISTINE WELCH RN
[2020-09-09 05:44] LABS: ALBUMIN 2.9 gm/dl (3.1-4.5); ALKALINE PHOSPHATASE 109 U/L (45-117); BUN 3 mg/dl (7-24); CHLORIDE 103 mmol/L (98-107); CREATININE 0.53 mg/dL (0.70-1.30); SGOT/AST 61 IU/L (3-35); SGPT/ALT 32 U/L (12-78); SODIUM 131 mmol/L (136-145); TOTAL PROTEIN 6.5 gm/dL (6.4-8.2)
[2020-09-09 05:50] LABS: FREE T4 1.02 ng/dl (0.76-1.46)
--- NOTE | 2020-09-09 05:52 | NUR ---
IV MORPHINE GIVEN FOR R SHOULDER PAIN RATED 5/10. WILL MONITOR. CALL LIGHT IN REACH.
[2020-09-09 06:10] LABS: HEMATOCRIT 33.9 % (42.0-52.0); MEAN CELL VOLUME 95.5 fl (80.0-94.0); MEAN CORPUSCULAR HGB CONC 32.4 g/dl (33.0-37.0); PLATELET COUNT AUTOMATED 157 10*3/uL (130-400); RED BLOOD COUNT 3.55 10*6/uL (4.50-5.90); RED CELL DISTRI WIDTH 15.1 % (0-14.5); WHITE BLOOD COUNT 5.4 10*3/uL (4.8-10.8)
[2020-09-09 07:01] VITALS: BP 116/76
[2020-09-09 07:09] LABS: BASOPHILS 1 % (0-1); PLATELET SUFFICIENCY NORMAL (NORMAL); TOTAL CELLS COUNTED 100 #CELLS
[2020-09-09] MEDS ORDERED: CELECOXIB200 M1 PO (09:20)
[2020-09-09] MEDS ORDERED: VITAMIN D350 MC2 PO (09:20)
--- NOTE | 2020-09-09 11:25 | NUR ---
Faxed home health order to [facility]
--- NOTE | 2020-09-09 11:30 | NUR ---
Occupational Therapy evaluation completed on ED HOLD with full evaluation to follow. Recommend occupational therapy per plan of care and SNF upon discharge. Thank you for this referral. Prerna Johnson OTR/L
--- NOTE | 2020-09-09 11:33 | NUR ---
PHYSICAL THERAPY Physical Therapy evaluation completed in ED HOLD with full evaluation to follow. Moderate complexity skilled PT services per chart review and evaluation. Recommend physical therapy per plan of care and SNF upon discharge. Thank you for this referral. Karine Casper,PT,DPT
[2020-09-09 17:33] VITALS: BP 153/88
--- NOTE | 2020-09-09 18:51 | NUR ---
[facility] 55, admitted to , under the services of GIN Arango DO with a diagnosis of HUMERUS SHAFT FRACTURE. Chief complaint is INJURY. Patient arrived via bed from ER. Monitor applied. Initial assessment completed. Vital signs taken and recorded. GIN ARANGO DO notified of admission to the unit. Orders received. See assessment for past medical history, medications and allergies. Patient and/or family oriented to unit. [facility]. Clothing/patient valuable form completed. TIMUR BOLANOS
--- NOTE | 2020-09-09 19:48 | NUR ---
IV MORPHINE GIVEN FOR R ARM/SHOULDER PAIN RATED 10/10. WILL MONITOR EFFECTIVENESS. CALL LIGHT IN REACH.
[2020-09-09 20:00] VITALS: BP 138/79
--- NOTE | 2020-09-09 20:45 | NUR ---
EARLIER MORPHINE HELPED SOME, BUT PT STILL RATING PAIN 7/10. WILL GIVE PRN NORCO.
--- NOTE | 2020-09-09 20:58 | NUR ---
SCHEDULED LIBRIUM GIVEN PER ORDER. PO NORCO ALSO GIVEN FOR C/O PAIN IN R SHOULDER RATED 7/10. WILL MONITOR.
--- NOTE | 2020-09-09 21:50 | NUR ---
EARLIER MEDICATIONS EFFECTIVE PER PT.
[2020-09-10] VITALS: BP 107/83
--- NOTE | 2020-09-10 02:20 | NUR ---
PT ASLEEP IN BED. NO S/S OF DISTRESS NOTED. WILL MONITOR. CALL LIGHT IN REACH.
--- NOTE | 2020-09-10 03:59 | NUR ---
PT ASLEEP IN BED. RESPIRATIONS EASY. NO S/S OF DISTRESS NOTED. WILL MONITOR. CALL LIGHT IN REACH.
--- NOTE | 2020-09-10 06:50 | NUR ---
EARLIER MEDICATION APPEARS EFFECTIVE. PT ASLEEP IN BED. WILL MONITOR. CALL LIGHT IN REACH.
[2020-09-10 07:26] LABS: CHLORIDE 100 mmol/L (98-107); POTASSIUM 3.8 mmol/L (3.5-5.1); SODIUM 131 mmol/L (136-145)
[2020-09-10 07:30] LABS: BUN 4 mg/dl (7-24); CREATININE 0.54 mg/dL (0.70-1.30)
--- NOTE | 2020-09-10 07:45 | NUR ---
PT C/O OF RIGHT SHOULDER PAIN, REPOSITIONING INEFFECTIVE, PRN NORCO GIVEN FOR 8 PAIN
[2020-09-10 08:00] VITALS: BP 126/73
--- NOTE | 2020-09-10 08:30 | NUR ---
PT RESTING IN BED WITH EYES CLOSED NO COMPLAINTS AT THIS TIME
--- NOTE | 2020-09-10 10:54 | NUR ---
OK MORPHINE GIVEN FOR RIGHT SHOULDER PAIN RATING 10/10
--- NOTE | 2020-09-10 11:30 | NUR ---
PER PT MORPHINE WAS EFFECTIVE PAIN 12/25 BUT TOLERABLE
[2020-09-10 12:00] VITALS: BP 124/90
--- NOTE | 2020-09-10 14:34 | NUR ---
PT NORCO GIVEN FOR RIGHT SHOULDER PAIN RATING 6/10
--- NOTE | 2020-09-10 15:00 | NUR ---
PER PT NORCO WAS EFFECTIVE FOR RIGHT SHOULDER PAIN
[2020-09-10 16:00] VITALS: BP 126/80
--- NOTE | 2020-09-10 19:56 | NUR ---
PT C/O 04/26 RIGHT SHOULDER PAIN, MEDICATED WITH IV MORPHINE PER ORDER. WILL MONITOR FOR EFFECTIVENESS.
[2020-09-10 20:00] VITALS: BP 148/81
--- NOTE | 2020-09-10 20:56 | NUR ---
PER PATIENT, MORPHINE HAS BEEN EFFECTIVE. DENIES FURTHER COMPLAINTS AT THIS TIME.
--- NOTE | 2020-09-10 22:57 | NUR ---
PATIENT MEDICATED WITH NORCO PER PRN ORDER FOR 8/10 PAIN IN RIGHT SHOULDER. WILL MONITOR FOR EFFECTIVENESS.
--- NOTE | 2020-09-10 23:57 | NUR ---
PER PT NORCO EFFECTIVE AT THIS TIME. RESTING IN BED, WATCHING TV. CALL LIGHT IN REACH.
[2020-09-11] VITALS: BP 131/83
--- NOTE | 2020-09-11 00:59 | NUR ---
IV MORPHINE GIVEN FOR R ARM/SHOULDER PAIN RATED 10/10.
--- NOTE | 2020-09-11 01:59 | NUR ---
PER PATIENT - PAIN MEDICATION EFFECTIVE. RESTING, CALL LIGHT IN REACH.
--- NOTE | 2020-09-11 05:26 | NUR ---
PT MEDICATED WITH IV MORPHINE AT THIS TIME FOR COMPLAINTS OF 9/10 RT SHOULDER PAIN. WILL MONITOR FOR EFFECTIVENESS.
[2020-09-11 08:00] VITALS: BP 120/85
--- NOTE | 2020-09-11 08:41 | NUR ---
PT C/O OF RIGHT SHOULDER PAIN PRN NORCO GIVEN FOR 5/10 PAIN
--- NOTE | 2020-09-11 09:10 | NUR ---
PER PT NORCO WAS EFFECTIVE
--- NOTE | 2020-09-11 09:49 | NUR ---
Discharge Plannerin to talk to patient this morning in his room Patient states that he Lives at Home with his Uncle. There are 7 steps in the home. Physician: DR. TOMLIN Pharmacy: [facility] Home health services: NONE AT THIS TIME Patient's level of ADLs: INDEPENDENT, STILL DRIVES Patient has working utilities: YES ALL WORKING DME: NONE Follow-up physician's appointment after d/c: PER HOSPITALIST NURSE DIRECTOR Does patient want to access PORTAL?: DECLINES Discharge plan discussed with Pt. Pt. states at this time he has no Home Needs and will return to live with his Uncle. Denies Need for SNF or Home Health. Plan at this time is for Pt. to return home with his Uncle with No Home Needs. VALENTE AMBRIZ LPN
--- NOTE | 2020-09-11 09:50 | NUR ---
PHYSICAL THERAPY Patient seen this am 1;1 for therapy visit and was relaxing supine in bed upon therapist arrival. Patient identified by name / and presented with R shoulder sling, voicing 4/10 pain at rest. Patient is NWB on R UE secondary to recent FX and transfers supine to sit EOB, CGA x 1. Patient c/o's of increased R shoulder pain, 10/10 and educated on importance of proper sling support. Therapist adjusted R shoulder sling to promote improved support and decreased pain c/o. Patient also educated on relaxation breathing technique to relax shoulder muscles, allowing sling to provide support. Patient completed sit to stand transfer, CGA and ambulated CGA, ad ge in room, 40'x 1, demonstrating initial "waddling" gait pattern. Patient was very cautious and a little unsteady to during 180 turns, requiring v/c to improve safe step sequence. Patient returned to supine in bed with no change in previous pain c/o and remained in bed with R shoulder pillow support, call light, tray table, telephone, bed alarm for safety. Will continue per POC as tolerated, total treatment time 17 minutes. Adrian Mcgee, ACID RECOVERY OPERATOR
--- NOTE | 2020-09-11 11:27 | NUR ---
PT ASSISTED TO BATHROOM, ONCE BACK IN BED PT HAVING PAIN IN RIGHT SHOULDER ANNA 03/26 PRN MORPHINE GIVEN
[2020-09-11 12:00] VITALS: BP 122/78
--- NOTE | 2020-09-11 12:00 | NUR ---
PER PT PRN MORPHINE WAS EFFECTIVE
[2020-09-11 16:00] VITALS: BP 125/68
--- NOTE | 2020-09-11 17:18 | NUR ---
PT C/O OF RIGHT SHOULDER PAIN RATING 8/10, REPOSITIONING INEFFECTIVE. PRN MORPHINE GIVEN FOR PAIN
--- NOTE | 2020-09-11 17:54 | NUR ---
PT RESTING IN BED WITH EYES CLOSED AT THIS TIME, NO COMPLAINTS OF PAIN
[2020-09-11 20:00] VITALS: BP 125/79
--- NOTE | 2020-09-11 20:52 | NUR ---
MEDICATED WITH PRN NORCO FOR C/O PAIN RATED 8/10 ON A 0/10 PAIN SCALE
--- NOTE | 2020-09-11 21:52 | NUR ---
NORCO NOT EFFECTIVE PER PATIENT
--- NOTE | 2020-09-11 21:59 | NUR ---
MEDICATED WITH PRN MORPHINE FOR C/O RIGHT SHOULDER PAIN
--- NOTE | 2020-09-11 22:59 | NUR ---
MEDICATION EFFECTIVE PER PATIENT
[2020-09-12] VITALS: BP 118/75
--- NOTE | 2020-09-12 05:36 | NUR ---
MEDICATED WITH PRN NORCO FOR C/O RIGHT SHOULDER PAIN
[2020-09-12 07:09] LABS: BASO % 0.5 % (0.0-1.0); EOS # 0.1 10*3/uL (0.0-0.4); EOS % 1.5 % (1.0-4.0); HEMATOCRIT 29.5 % (42.0-52.0); LYMPH # 1.6 10*3/uL (1.3-4.4); MEAN CELL VOLUME 95.2 fl (80.0-94.0); MEAN CORPUSCULAR HGB 31.3 pg (27.0-31.0); MEAN CORPUSCULAR HGB CONC 32.9 g/dl (33.0-37.0); MEAN PLATELET VOLUME 9.7 fl (9.6-12.3); MONO # 1.1 10*3/uL (0.1-1.0); MONO % 19.3 % (3.0-9.0); NEUT # 2.9 10*3/uL (2.3-7.9); NEUT % 50.4 % (47.0-73.0); PLATELET COUNT AUTOMATED 228 10*3/uL (130-400); RED CELL DISTRI WIDTH 15.3 % (0-14.5); WHITE BLOOD COUNT 5.9 10*3/uL (4.8-10.8)
[2020-09-12 08:00] VITALS: BP 128/73
--- NOTE | 2020-09-12 08:02 | NUR ---
MEDICATED WITH PRN MORPHINE PER ORDER AND REQUEST FOR R SHOULDER PAIN RATED AT 7 OUT OF 10.
[2020-09-12 12:00] VITALS: BP 134/78
[2020-09-12 16:00] VITALS: BP 144/90
[2020-09-12 20:00] VITALS: BP 115/76
--- NOTE | 2020-09-12 20:15 | NUR ---
medicated with prn morphine for c/o right shoulder pain and zofran for c/o nausea.
--- NOTE | 2020-09-12 21:15 | NUR ---
PATIENT RESTING IN BED WITH EYES CLOSED. PREVIOUS MEDS SEEM EFFECTIVE
[2020-09-13] VITALS: BP 128/78
--- NOTE | 2020-09-13 01:30 | NUR ---
NORCO GIVEN PER ORDER FOR COMPLAINTS OF 8/10 PAIN IN RIGHT SHOULDER. WILL MONITOR
--- NOTE | 2020-09-13 02:30 | NUR ---
PATIENT SLEEPING, MEDICATION SEEMS EFFECTIVE
--- NOTE | 2020-09-13 06:23 | NUR ---
MEDICATED WITH PRN MORPHINE FOR C/O PAIN IN RIGHT SHOULDER
[2020-09-13 06:32] LABS: BASO # 0.1 10*3/uL (0.0-0.1); BASO % 0.7 % (0.0-1.0); EOS # 0.1 10*3/uL (0.0-0.4); EOS % 1.3 % (1.0-4.0); HEMATOCRIT 31.7 % (42.0-52.0); LYMPH % 29.2 % (27.0-41.0); MEAN CELL VOLUME 95.5 fl (80.0-94.0); MEAN CORPUSCULAR HGB 31.3 pg (27.0-31.0); MEAN CORPUSCULAR HGB CONC 32.8 g/dl (33.0-37.0); MEAN PLATELET VOLUME 9.6 fl (9.6-12.3); MONO # 1.3 10*3/uL (0.1-1.0); MONO % 18.3 % (3.0-9.0); NEUT # 3.5 10*3/uL (2.3-7.9); NEUT % 50.4 % (47.0-73.0); PLATELET COUNT AUTOMATED 260 10*3/uL (130-400); RED BLOOD COUNT 3.32 10*6/uL (4.50-5.90); RED CELL DISTRI WIDTH 15.1 % (0-14.5)
[2020-09-13 06:55] LABS: CREATININE 0.59 mg/dL (0.70-1.30); IRON 33 ug/dL (65-175); TOTAL IRON BINDING CAPACITY 301 ug/dl (250-450)
--- NOTE | 2020-09-13 07:40 | NUR ---
OT NOTE Pt was seen this A.M. 1:1 for 24 minute OT session. Upon arrival pt was supine in bed. Pt identified by name and and had complaints of 5/10 R shoulder pain at rest and 9/10 with activity. Pt presented to therapy with sling to RUE which was not donned proper. Pt was educated and sling donned to proper fit. Prior to activity pt was able to self recall and verbalize NWB to RUE however was reeducated on no AROM to R shoulder. Pt transferred supine to sit EOB with SBA. While sitting EOB requested for pt to doffed and troy B socks and pt was able to complete with supervision while using proper david dressing technique. Sit to stand completed from bed level with CGA followed by functional mobility to the bathroom with CGA for safety due to bouts of unsteady stance. There he transferred on/off standard commode with CGA while crossing midline with his LUE for use of grab bar. Clothing management completed with CGA and use of LUE. Functional mobility completed back to the EOB. While sitting EOB pt was educated on pumping exercises for edema control and completed 1 X 5. Pt then completed AROM to R wrist and digits over all planes for 1 X 5 to increase and restore maximum functional use. Attempted to complete AROM to R elbow and pt refused stating "that kills my arm", pt continued to refuse task. Pt then transferred back into bed sit to supine with SBA. There he was left with call light in hand, tray table in place, and bed alarm activated for safety. Continue with rec D/C plan to SNF. PHANI Slade
[2020-09-13 08:00] VITALS: BP 131/78
--- NOTE | 2020-09-13 08:28 | NUR ---
PHYSICAL THERAPY Patient presented to therapy in supine in bed with head of bed elevated and bed alarm off. Patient gives informed consent for treatment. Patient was identified by name and on wristband. Patient R UE is NWB. Patient completed supine > sitting on EOB with SBA. Patient sat on EOB with SBA. Patient STS from EOB with CGA. Patient has R UE in sling. Patient ambulated with CGA < > the bathroom 20' x 2 with no LOB. Patient STS < > low chair CGA - SBA. Patient performed LAQs, Marches and heel/toe raises x 10 reps each for strengthening the LEs in all planes of movement in order to improve patient's functional mobility. Patient transferred back to supine in bed with SBA. Patient scooted up in bed with SBA. Patient was left in supine in bed with SBA. Patient call light left within reach and tray table near patient. Patient was 1:1 with this LOGISTICS ENGINEER for 18 MINUTES TOTAL. SHERIF HUMPHREY LOGISTICS ENGINEER
[2020-09-13] MEDS ORDERED: NORCO 5-325 TA1 EACH PO (10:25)
--- NOTE | 2020-09-13 11:27 | NUR ---
Spoke with Pt. in his Room. Advised the Physician is Discharging him Home Today. His insurance does not Cover SNF Services in [place]. Referral for Home Health Sent to [facility]. Call Placed to Pt. ex and Room Mate and Notified her Of Planned Discharge today. Pt. to arrange A ride with cupola tapper helper time 3:00 p.m. Nurse notified as well as Dr. Feng.
[2020-09-13 12:00] VITALS: BP 125/88
--- NOTE | 2020-09-13 12:16 | NUR ---
Pt. friend Cornel to Pick Patient up at 3:00 and Will transport him Home. Cornel will Bring Clothes for Pt. Nurse Shahla thompson. Signed RX for Home Health Faxed to [facility] [phone].
--- NOTE | 2020-09-13 12:50 | NUR ---
OT NOTE Pt was seen this P.M. 1:1 for 15 minute OT session. Upon arrival pt was supine in bed. Pt identified by name and and had complaints of 5/10 R shoulder pain. Pt presented to therapy with sling on RUE which was again not donned proper. Pt educated on proper fit/wear and was readjusted by this therapist. Pt transferred supine to sit EOB with supervision. Attempted to complete upper body david dressing with a shirt and pt declined stating "no, I am not doing that. I just wont wear a shirt over that arm." Sit to stand completed from bed level with CGA for safety followed by functional mobility to the bathroom and back with CGA due to bouts of unsteady stance. Challenged pt's standing activity tolerance and pt was able to tolerate aprox 4 minutes at a time before sitting due to fatigue. Pt completed 1 X 5 pumping exercises for edema control to his R hand. Pt then trnasferred back into bed sit to supine with supervision. There he was left with call light in hand, tray table in place, and phone in reach. Continue with rec D/C plan to SNF. TIFFANY Slade/John
--- NOTE | 2020-09-13 15:37 | NUR ---
Discharge instructions reviewed with patient/family. Patient receptive and verbalizes understanding. Follow-up care arranged. Written instructions given to patient/family. SELVIN CONNOR
--- NOTE | 2020-09-14 07:38 | NUR ---
OCCUPATIONAL THERAPY CO-SIGN I approve of the Occupational Therapy notes written above. MARYBEL TORRES, OTR/L
--- NOTE | 2020-09-14 09:30 | NUR ---
PHYSICAL THERAPY CO-SIGN I approve of the Phyical Therapy notes written above. Jocelyn Engel PT DPT
== END 2020-09-13 15:37 | disposition home health service (06) | DRG 563 ==
LOC: ED 15:11 → EDHOLD 17:59 → 5E 09-09 16:32
PROVIDERS: Internal Medicine; Physician Assistant; ADMIT Student in an Organized Health Care Education/Training Program; ATTEND Student in an Organized Health Care Education/Training Program
DX: S42.301A Unspecified fracture of shaft of humerus, right arm, initial encounter for closed fracture (principal); E87.1 Hypo-osmolality and hyponatremia; E87.2 Acidosis; E44.0 Moderate protein-calorie malnutrition; F10.929 Alcohol use, unspecified with intoxication, unspecified; D53.9 Nutritional anemia, unspecified; E87.8 Other disorders of electrolyte and fluid balance, not elsewhere classified; K21.9 Gastro-esophageal reflux disease without esophagitis; M54.9 Dorsalgia, unspecified; J44.9 Chronic obstructive pulmonary disease, unspecified; E03.9 Hypothyroidism, unspecified; K76.0 Fatty (change of) liver, not elsewhere classified; R74.01 Elevation of levels of liver transaminase levels; R73.9 Hyperglycemia, unspecified; D72.821 Monocytosis (symptomatic); Z20.828 Contact with and (suspected) exposure to other viral communicable diseases; D72.810 Lymphocytopenia; F17.210 Nicotine dependence, cigarettes, uncomplicated; I10 Essential (primary) hypertension; E55.9 Vitamin D deficiency, unspecified; E80.6 Other disorders of bilirubin metabolism; Z68.21 Body mass index [BMI] 21.0-21.9, adult; W18.30XA Fall on same level, unspecified, initial encounter; Y93.89 Activity, other specified; Y92.89 Other specified places as the place of occurrence of the external cause; Y99.8 Other external cause status; Z88.0 Allergy status to penicillin; Z88.8 Allergy status to other drugs, medicaments and biological substances; Z79.899 Other long term (current) drug therapy

== ENCOUNTER → 2020-10-06 | Outpatient (CLI) | payer MEDICAID ==
[~2020-10-06] MED LIST changes: +CELECOXIB200 M1 PO; +NORCO 5-325 TA1 EACH PO; +VITAMIN D350 MC2 PO
== END | disposition home or self-care (01) ==
LOC: ORTHO 01:06
PROVIDERS: ATTEND Orthopaedic Surgery
DX: S42.301D Unspecified fracture of shaft of humerus, right arm, subsequent encounter for fracture with routine healing (principal); X58.XXXD Exposure to other specified factors, subsequent encounter

== ENCOUNTER 2021-10-02 20:49 | Emergency (ER) | payer MEDICAID ==
[2021-10-02 21:09] LABS: BASO # 0.1 10*3/uL (0.0-0.1); BASO % 1.1 % (0.0-1.0); EOS # 0.1 10*3/uL (0.0-0.4); EOS % 1.4 % (1.0-4.0); HEMATOCRIT 35.3 % (42.0-52.0); LYMPH # 4.3 10*3/uL (1.3-4.4); LYMPH % 58.1 % (27.0-41.0); MEAN CELL VOLUME 87.8 fl (80.0-94.0); MEAN CORPUSCULAR HGB 27.6 pg (27.0-31.0); MEAN CORPUSCULAR HGB CONC 31.4 g/dl (33.0-37.0); MEAN PLATELET VOLUME 9.8 fl (9.6-12.3); MONO # 0.8 10*3/uL (0.1-1.0); MONO % 10.7 % (3.0-9.0); NEUT # 2.1 10*3/uL (2.3-7.9); NEUT % 28.4 % (47.0-73.0); PLATELET COUNT AUTOMATED 83 10*3/uL (130-400); RED BLOOD COUNT 4.02 10*6/uL (4.50-5.90); RED CELL DISTRI WIDTH 19.7 % (0-14.5); WHITE BLOOD COUNT 7.4 10*3/uL (4.8-10.8)
[2021-10-02 21:24] LABS: ALBUMIN 3.1 gm/dl (3.1-4.5); ALKALINE PHOSPHATASE 158 U/L (45-117); BUN 2 mg/dl (7-24); CHLORIDE 99 mmol/L (98-107); CREATININE 0.61 mg/dL (0.70-1.30); LIPASE 218 U/L (73-393); POTASSIUM 3.9 mmol/L (3.5-5.1); SGOT/AST 168 IU/L (3-35); SGPT/ALT 35 U/L (12-78); SODIUM 132 mmol/L (136-145); TOTAL PROTEIN 8.6 gm/dL (6.4-8.2)
== END 2021-10-03 15:31 | disposition home or self-care (01) ==
LOC: ED 20:49
PROVIDERS: Internal Medicine
DX: F10.129 Alcohol abuse with intoxication, unspecified (principal); Z88.0 Allergy status to penicillin; Z88.8 Allergy status to other drugs, medicaments and biological substances; Z79.899 Other long term (current) drug therapy; Z87.891 Personal history of nicotine dependence; Y90.9 Presence of alcohol in blood, level not specified

== ENCOUNTER 2022-04-05 21:43 | Emergency (ER) | payer MEDICAID ==
[~2022-04-05] VITALS: Ht 180.3 cm; Wt 74.8 kg
[~2022-04-05 21:43] MED LIST changes: +FLOMAX0.4 MG PO; +THIAMINE HCL100 MG PO
[2022-04-05 22:10] LABS: BASO # 0.1 10*3/uL (0.0-0.1); BASO % 1.1 % (0.0-1.0); EOS # 0.1 10*3/uL (0.0-0.4); EOS % 1.1 % (1.0-4.0); HEMATOCRIT 34.8 % (42.0-52.0); LYMPH # 3.1 10*3/uL (1.3-4.4); LYMPH % 41.3 % (27.0-41.0); MEAN CELL VOLUME 86.4 fl (80.0-94.0); MEAN CORPUSCULAR HGB 28.5 pg (27.0-31.0); MEAN PLATELET VOLUME 9.7 fl (9.6-12.3); MONO # 1.1 10*3/uL (0.1-1.0); MONO % 14.5 % (3.0-9.0); NEUT # 3.2 10*3/uL (2.3-7.9); NEUT % 41.9 % (47.0-73.0); PLATELET COUNT AUTOMATED 87 10*3/uL (130-400); RED BLOOD COUNT 4.03 10*6/uL (4.50-5.90); RED CELL DISTRI WIDTH 18.4 % (0-14.5); WHITE BLOOD COUNT 7.6 10*3/uL (4.8-10.8)
[2022-04-05 22:26] LABS: ALKALINE PHOSPHATASE 142 U/L (45-117); BUN 2 mg/dl (7-24); CHLORIDE 102 mmol/L (98-107); CREATININE 0.54 mg/dL (0.70-1.30); POTASSIUM 3.8 mmol/L (3.5-5.1); SGOT/AST 162 IU/L (3-35); SGPT/ALT 40 U/L (12-78); SODIUM 133 mmol/L (136-145); TOTAL PROTEIN 8.2 gm/dL (6.4-8.2)
== END 2022-04-06 05:05 | disposition home or self-care (01) ==
LOC: ED 21:43
PROVIDERS: Internal Medicine
DX: M25.462 Effusion, left knee (principal); F10.920 Alcohol use, unspecified with intoxication, uncomplicated; E87.1 Hypo-osmolality and hyponatremia; D64.9 Anemia, unspecified; R74.01 Elevation of levels of liver transaminase levels; F17.210 Nicotine dependence, cigarettes, uncomplicated; Z88.0 Allergy status to penicillin; Z88.8 Allergy status to other drugs, medicaments and biological substances; Z98.890 Other specified postprocedural states; Y90.7 Blood alcohol level of 200-239 mg/100 ml

== ENCOUNTER 2022-04-13 10:31 | Inpatient (IN) | payer MEDICAID ==
[2022-04-13] VITALS (15 sets, daily range): BP systolic 106–141; BP diastolic 58–77
[~2022-04-13] VITALS: Ht 180.3 cm; Wt 72.0 kg
[2022-04-13 11:09] LABS: MEAN CELL VOLUME 87.2 fl (80.0-94.0); MEAN CORPUSCULAR HGB 30.1 pg (27.0-31.0); MEAN CORPUSCULAR HGB CONC 34.6 g/dl (33.0-37.0); MEAN PLATELET VOLUME 9.4 fl (9.6-12.3); PLATELET COUNT AUTOMATED 190 10*3/uL (130-400); RED BLOOD COUNT 2.19 10*6/uL (4.50-5.90); RED CELL DISTRI WIDTH 17.1 % (0-14.5); WHITE BLOOD COUNT 10.4 10*3/uL (4.8-10.8)
[2022-04-13 11:13] LABS: MANUAL DIFF REFLEX YES
[2022-04-13 11:14] LABS: HEMATOCRIT 19.1 % (42.0-52.0)
[2022-04-13 11:32] LABS: OVALOCYTES FEW; PLATELET SUFFICIENCY NORMAL (NORMAL); POLYCHROMASIA SLIGHT; SCHISTOCYTES FEW; TARGET CELLS FEW; TOTAL CELLS COUNTED 100 #CELLS
[2022-04-13 11:36] LABS: BUN 17 mg/dl (7-24); CHLORIDE 79 mmol/L (98-107); CREATININE 0.44 mg/dL (0.70-1.30); LIPASE 55 U/L (73-393); POTASSIUM 3.6 mmol/L (3.5-5.1); SGOT/AST 54 IU/L (3-35); SGPT/ALT 19 U/L (12-78)
[2022-04-13 11:37] LABS: ALKALINE PHOSPHATASE 84 U/L (45-117); TOTAL PROTEIN 6.5 gm/dL (6.4-8.2)
[2022-04-13 11:45] LABS: SODIUM 109 mmol/L (136-145)
[2022-04-13 16:15] LABS: BASO % 0.1 % (0.0-1.0); EOS # 0.2 10*3/uL (0.0-0.4); EOS % 2.7 % (1.0-4.0); HEMATOCRIT 21.2 % (42.0-52.0); LYMPH # 0.9 10*3/uL (1.3-4.4); MEAN CELL VOLUME 86.9 fl (80.0-94.0); MEAN CORPUSCULAR HGB 29.9 pg (27.0-31.0); MEAN CORPUSCULAR HGB CONC 34.4 g/dl (33.0-37.0); MEAN PLATELET VOLUME 9.6 fl (9.6-12.3); MONO # 1.1 10*3/uL (0.1-1.0); MONO % 12.7 % (3.0-9.0); NEUT # 6.3 10*3/uL (2.3-7.9); NEUT % 73.9 % (47.0-73.0); PLATELET COUNT AUTOMATED 156 10*3/uL (130-400); RED BLOOD COUNT 2.44 10*6/uL (4.50-5.90); RED CELL DISTRI WIDTH 16.4 % (0-14.5); WHITE BLOOD COUNT 8.6 10*3/uL (4.8-10.8)
[2022-04-13 16:27] LABS: ACT PARTIAL THROMBO TIME 31.6 SECONDS (20.0-32.1); INTERNATIONAL NORM RATIO 1.1 (2.0-3.5)
[2022-04-13 16:39] LABS: BUN 15 mg/dl (7-24); CHLORIDE 81 mmol/L (98-107); CREATININE 0.42 mg/dL (0.70-1.30); POTASSIUM 3.7 mmol/L (3.5-5.1)
[2022-04-13 16:46] LABS: SODIUM 110 mmol/L (136-145)
[2022-04-13 23:20] LABS: BUN 14 mg/dl (7-24); CHLORIDE 83 mmol/L (98-107); POTASSIUM 4.1 mmol/L (3.5-5.1)
[2022-04-13 23:22] LABS: SODIUM 113 mmol/L (136-145)
[2022-04-14] VITALS (17 sets, daily range): BP systolic 86–156; BP diastolic 54–93
[2022-04-14 02:11] LABS: BUN 12 mg/dl (7-24); CHLORIDE 84 mmol/L (98-107); CREATININE 0.45 mg/dL (0.70-1.30); POTASSIUM 4.3 mmol/L (3.5-5.1)
[2022-04-14 02:14] LABS: SODIUM 116 mmol/L (136-145)
[2022-04-14 05:27] LABS: BUN 12 mg/dl (7-24); CHLORIDE 84 mmol/L (98-107); CHOLESTEROL 77 mg/dL (<200); CREATININE 0.54 mg/dL (0.70-1.30); SGOT/AST 96 IU/L (3-35); SGPT/ALT 26 U/L (12-78); TOTAL PROTEIN 5.9 gm/dL (6.4-8.2); TRIGLYCERIDES 91 mg/dl (<150)
[2022-04-14 05:29] LABS: ALKALINE PHOSPHATASE 76 U/L (45-117)
[2022-04-14 05:34] LABS: FREE T4 1.05 ng/dl (0.76-1.46); LDL CHOLESTEROL 48 mg/dL (9-159); THYROID STIM HORMONE (HS) 0.099 uIU/ml (0.358-4.75)
[2022-04-14 05:40] LABS: SODIUM 114 mmol/L (136-145)
[2022-04-14 06:07] LABS: BASO % 0.3 % (0.0-1.0); EOS % 0.3 % (1.0-4.0); HEMATOCRIT 21.5 % (42.0-52.0); LYMPH # 0.8 10*3/uL (1.3-4.4); LYMPH % 13.4 % (27.0-41.0); MEAN CELL VOLUME 88.1 fl (80.0-94.0); MEAN CORPUSCULAR HGB 29.1 pg (27.0-31.0); MONO # 0.9 10*3/uL (0.1-1.0); MONO % 14.2 % (3.0-9.0); NEUT # 4.3 10*3/uL (2.3-7.9); NEUT % 71.5 % (47.0-73.0); PLATELET COUNT AUTOMATED 172 10*3/uL (130-400); RED BLOOD COUNT 2.44 10*6/uL (4.50-5.90); RED CELL DISTRI WIDTH 16.6 % (0-14.5)
[2022-04-14 11:04] LABS: BUN 11 mg/dl (7-24); CHLORIDE 87 mmol/L (98-107); CREATININE 0.49 mg/dL (0.70-1.30)
[2022-04-14 11:10] LABS: SODIUM 114 mmol/L (136-145)
[2022-04-14 12:17] LABS: BILIRUBIN 1+ (Negative); BLOOD Negative (Negative); CLARITY Clear (Clear); COLOR Orange (Yellow); GLUCOSE Negative (Negative); KETONE Negative (Negative); LEUKO ESTERASE Trace (Negative); NITRITE Negative (Negative)
[2022-04-14 12:42] LABS: BACTERIA 1+; RBC 0-2 rbc/hpf (0-2)
[2022-04-14 15:30] LABS: BUN 10 mg/dl (7-24); CHLORIDE 88 mmol/L (98-107); CREATININE 0.45 mg/dL (0.70-1.30); POTASSIUM 3.7 mmol/L (3.5-5.1)
[2022-04-14 15:33] LABS: SODIUM 117 mmol/L (136-145)
[2022-04-14 18:20] LABS: BUN 9 mg/dl (7-24); CREATININE 0.46 mg/dL (0.70-1.30)
[2022-04-14 18:52] LABS: CHLORIDE 87 mmol/L (98-107); POTASSIUM 3.9 mmol/L (3.5-5.1)
[2022-04-14 18:53] LABS: SODIUM 117 mmol/L (136-145)
[2022-04-14 22:34] LABS: BUN 7 mg/dl (7-24); CHLORIDE 89 mmol/L (98-107); CREATININE 0.48 mg/dL (0.70-1.30); POTASSIUM 3.7 mmol/L (3.5-5.1)
[2022-04-14 22:41] LABS: SODIUM 117 mmol/L (136-145)
[2022-04-15] VITALS: BP 112/65
[2022-04-15 02:21] LABS: BUN 6 mg/dl (7-24); CHLORIDE 89 mmol/L (98-107); CREATININE 0.39 mg/dL (0.70-1.30); POTASSIUM 3.6 mmol/L (3.5-5.1); SODIUM 122 mmol/L (136-145)
[2022-04-15 04:00] VITALS: BP 135/78
[2022-04-15 06:05] LABS: HEMATOCRIT 24.8 % (42.0-52.0); MEAN CORPUSCULAR HGB 29.7 pg (27.0-31.0); MEAN CORPUSCULAR HGB CONC 32.3 g/dl (33.0-37.0); MEAN PLATELET VOLUME 9.3 fl (9.6-12.3); PLATELET COUNT AUTOMATED 178 10*3/uL (130-400); RED BLOOD COUNT 2.69 10*6/uL (4.50-5.90); RED CELL DISTRI WIDTH 16.5 % (0-14.5); WHITE BLOOD COUNT 7.1 10*3/uL (4.8-10.8)
[2022-04-15 06:18] LABS: ALKALINE PHOSPHATASE 80 U/L (45-117); BUN 5 mg/dl (7-24); CHLORIDE 89 mmol/L (98-107); POTASSIUM 3.9 mmol/L (3.5-5.1); SGOT/AST 81 IU/L (3-35); SGPT/ALT 27 U/L (12-78); SODIUM 122 mmol/L (136-145); TOTAL PROTEIN 5.5 gm/dL (6.4-8.2)
[2022-04-15 06:19] LABS: MANUAL DIFF REFLEX YES; MEAN CELL VOLUME 92.2 fl (80.0-94.0)
[2022-04-15 06:53] LABS: PLATELET SUFFICIENCY NORMAL (NORMAL); TOTAL CELLS COUNTED 100 #CELLS
[2022-04-15 08:00] VITALS: BP 128/80
[2022-04-15 10:39] LABS: BUN 6 mg/dl (7-24); CHLORIDE 90 mmol/L (98-107); CREATININE 0.39 mg/dL (0.70-1.30); POTASSIUM 3.5 mmol/L (3.5-5.1)
[2022-04-15 10:40] LABS: SODIUM 117 mmol/L (136-145)
[2022-04-15 12:00] VITALS: BP 120/79
[2022-04-15 14:43] LABS: BUN 4 mg/dl (7-24); CHLORIDE 87 mmol/L (98-107); CREATININE 0.44 mg/dL (0.70-1.30); POTASSIUM 3.6 mmol/L (3.5-5.1); SODIUM 121 mmol/L (136-145)
[2022-04-15 18:28] LABS: BUN 5 mg/dl (7-24); CHLORIDE 89 mmol/L (98-107); CREATININE 0.42 mg/dL (0.70-1.30); POTASSIUM 3.4 mmol/L (3.5-5.1)
[2022-04-15 18:44] LABS: SODIUM 117 mmol/L (136-145)
[2022-04-15 20:00] VITALS: BP 131/80
[2022-04-15 22:06] LABS: BUN 5 mg/dl (7-24); CHLORIDE 90 mmol/L (98-107); CREATININE 0.44 mg/dL (0.70-1.30); POTASSIUM 3.4 mmol/L (3.5-5.1)
[2022-04-15 22:09] LABS: SODIUM 118 mmol/L (136-145)
[2022-04-16] VITALS: BP 115/70
[2022-04-16 02:09] LABS: BUN 5 mg/dl (7-24); CHLORIDE 90 mmol/L (98-107); CREATININE 0.49 mg/dL (0.70-1.30); POTASSIUM 3.7 mmol/L (3.5-5.1); SODIUM 121 mmol/L (136-145)
[2022-04-16 04:00] VITALS: BP 124/79
[2022-04-16 06:07] LABS: BUN 4 mg/dl (7-24); CHLORIDE 88 mmol/L (98-107); CREATININE 0.46 mg/dL (0.70-1.30); POTASSIUM 3.6 mmol/L (3.5-5.1); SGOT/AST 65 IU/L (3-35); SGPT/ALT 25 U/L (12-78); SODIUM 122 mmol/L (136-145); TOTAL PROTEIN 5.4 gm/dL (6.4-8.2)
[2022-04-16 06:08] LABS: ALKALINE PHOSPHATASE 92 U/L (45-117); HEMATOCRIT 24.4 % (42.0-52.0); MEAN CELL VOLUME 91.7 fl (80.0-94.0); MEAN CORPUSCULAR HGB 30.1 pg (27.0-31.0); MEAN CORPUSCULAR HGB CONC 32.8 g/dl (33.0-37.0); MEAN PLATELET VOLUME 9.7 fl (9.6-12.3); PLATELET COUNT AUTOMATED 230 10*3/uL (130-400); RED BLOOD COUNT 2.66 10*6/uL (4.50-5.90); RED CELL DISTRI WIDTH 16.8 % (0-14.5); WHITE BLOOD COUNT 13.1 10*3/uL (4.8-10.8)
[2022-04-16 06:19] LABS: MANUAL DIFF REFLEX YES
[2022-04-16 06:56] LABS: TOTAL CELLS COUNTED 100 #CELLS
[2022-04-16 06:57] LABS: PLATELET SUFFICIENCY NORMAL (NORMAL)
[2022-04-16 08:00] VITALS: BP 106/68
[2022-04-16 11:41] VITALS: BP 133/73
[2022-04-16 12:39] LABS: BUN 5 mg/dl (7-24); CHLORIDE 91 mmol/L (98-107); CREATININE 0.48 mg/dL (0.70-1.30); POTASSIUM 3.5 mmol/L (3.5-5.1)
[2022-04-16 12:45] LABS: SODIUM 115 mmol/L (136-145)
[2022-04-16 15:55] VITALS: BP 143/86
[2022-04-16 17:57] LABS: BUN 5 mg/dl (7-24); CHLORIDE 89 mmol/L (98-107); CREATININE 0.38 mg/dL (0.70-1.30); POTASSIUM 3.1 mmol/L (3.5-5.1)
[2022-04-16 18:05] LABS: SODIUM 119 mmol/L (136-145)
[2022-04-16 20:00] VITALS: BP 100/60
[2022-04-17] VITALS: BP 98/65
[2022-04-17 00:33] LABS: BUN 5 mg/dl (7-24); CHLORIDE 89 mmol/L (98-107); CREATININE 0.37 mg/dL (0.70-1.30); SODIUM 120 mmol/L (136-145)
[2022-04-17 04:00] VITALS: BP 98/57
[2022-04-17 05:43] LABS: ALKALINE PHOSPHATASE 88 U/L (45-117); BUN 6 mg/dl (7-24); CHLORIDE 90 mmol/L (98-107); CREATININE 0.42 mg/dL (0.70-1.30); POTASSIUM 2.9 mmol/L (3.5-5.1); SGOT/AST 41 IU/L (3-35); SGPT/ALT 19 U/L (12-78); SODIUM 120 mmol/L (136-145); TOTAL PROTEIN 5.5 gm/dL (6.4-8.2)
[2022-04-17 06:29] LABS: MEAN CELL VOLUME 90.3 fl (80.0-94.0); MEAN CORPUSCULAR HGB CONC 33.2 g/dl (33.0-37.0); MEAN PLATELET VOLUME 9.5 fl (9.6-12.3); PLATELET COUNT AUTOMATED 250 10*3/uL (130-400); RED BLOOD COUNT 2.77 10*6/uL (4.50-5.90); RED CELL DISTRI WIDTH 16.9 % (0-14.5); WHITE BLOOD COUNT 16.9 10*3/uL (4.8-10.8)
[2022-04-17 06:47] LABS: MANUAL DIFF REFLEX YES
[2022-04-17 07:06] LABS: BURR CELLS FEW; PLATELET SUFFICIENCY NORMAL (NORMAL); POLYCHROMASIA SLIGHT; TOTAL CELLS COUNTED 100 #CELLS; TOXIC GRANULATION SLIGHT
[2022-04-17 08:00] VITALS: BP 117/70
[2022-04-17 12:00] VITALS: BP 106/68
[2022-04-17 16:00] VITALS: BP 105/65
[2022-04-17 20:00] VITALS: BP 101/64
[2022-04-18] VITALS: BP 99/66
[2022-04-18 04:00] VITALS: BP 111/70
[2022-04-18 05:07] LABS: ALKALINE PHOSPHATASE 89 U/L (45-117); BUN 8 mg/dl (7-24); CHLORIDE 94 mmol/L (98-107); CREATININE 0.51 mg/dL (0.70-1.30); SGOT/AST 56 IU/L (3-35); SGPT/ALT 22 U/L (12-78); SODIUM 125 mmol/L (136-145); TOTAL PROTEIN 5.2 gm/dL (6.4-8.2)
[2022-04-18 06:12] LABS: MEAN CELL VOLUME 88.5 fl (80.0-94.0); MEAN CORPUSCULAR HGB 29.2 pg (27.0-31.0); MEAN PLATELET VOLUME 9.4 fl (9.6-12.3); PLATELET COUNT AUTOMATED 300 10*3/uL (130-400); RED CELL DISTRI WIDTH 16.8 % (0-14.5); WHITE BLOOD COUNT 17.2 10*3/uL (4.8-10.8)
[2022-04-18 06:14] LABS: MANUAL DIFF REFLEX YES
[2022-04-18 06:43] LABS: BASOPHILS 1 % (0-1); BURR CELLS FEW; OVALOCYTES FEW; PLATELET SUFFICIENCY NORMAL (NORMAL); POLYCHROMASIA SLIGHT; ROULEAUX SLIGHT; TARGET CELLS FEW; TOTAL CELLS COUNTED 100 #CELLS; TOXIC GRANULATION SLIGHT
[2022-04-18 07:06] LABS: HBSAG Negative (Negative); HEP B CORE AB, IGM Negative (Negative); HEPATITIS C ANTIBODY 0.1 (0.0-0.9)
[2022-04-18 08:00] VITALS: BP 102/70
[2022-04-18 12:00] VITALS: BP 131/71
[2022-04-18 16:00] VITALS: BP 129/81
[2022-04-18 20:00] VITALS: BP 121/78
[2022-04-19] VITALS: BP 116/71
[2022-04-19 04:00] VITALS: BP 116/78
[2022-04-19 05:14] LABS: ALKALINE PHOSPHATASE 108 U/L (45-117); BUN 7 mg/dl (7-24); CHLORIDE 97 mmol/L (98-107); CREATININE 0.44 mg/dL (0.70-1.30); POTASSIUM 3.7 mmol/L (3.5-5.1); SGOT/AST 88 IU/L (3-35); SGPT/ALT 34 U/L (12-78); SODIUM 125 mmol/L (136-145); TOTAL PROTEIN 5.6 gm/dL (6.4-8.2)
[2022-04-19 06:40] LABS: HEMATOCRIT 25.3 % (42.0-52.0); MEAN CORPUSCULAR HGB 29.5 pg (27.0-31.0); MEAN CORPUSCULAR HGB CONC 32.4 g/dl (33.0-37.0); MEAN PLATELET VOLUME 9.2 fl (9.6-12.3); PLATELET COUNT AUTOMATED 349 10*3/uL (130-400); RED BLOOD COUNT 2.78 10*6/uL (4.50-5.90); RED CELL DISTRI WIDTH 16.7 % (0-14.5); WHITE BLOOD COUNT 18.5 10*3/uL (4.8-10.8)
[2022-04-19 06:41] LABS: MANUAL DIFF REFLEX YES
[2022-04-19 07:01] LABS: BASOPHILS 1 % (0-1); BURR CELLS FEW; POLYCHROMASIA SLIGHT; TOTAL CELLS COUNTED 100 #CELLS; TOXIC GRANULATION SLIGHT
[2022-04-19 07:02] LABS: PLATELET SUFFICIENCY NORMAL (NORMAL); SCHISTOCYTES FEW
[2022-04-19 08:00] VITALS: BP 143/86
[2022-04-19 12:00] VITALS: BP 157/103
[2022-04-19 15:07] LABS: BILIRUBIN Negative (Negative); BLOOD Negative (Negative); CLARITY Cloudy (Clear); COLOR Yellow (Yellow); GLUCOSE Negative (Negative); KETONE Negative (Negative); LEUKO ESTERASE Trace (Negative); NITRITE Negative (Negative); PH 5.5 (4.5-8.0); SPECIFIC GRAVITY 1.015 (1.001-1.030); UROBILINOGEN 0.2 E.U./dl (0.0-1.0)
[2022-04-19 15:14] LABS: BACTERIA 1+
[2022-04-19 15:15] LABS: YEAST 2+
[2022-04-19 15:17] LABS: URINE CREATININE RANDOM 76.7 mg/dL
[2022-04-19 16:00] VITALS: BP 132/89
[2022-04-19 20:00] VITALS: BP 147/90
[2022-04-20] VITALS: BP 144/82
[2022-04-20 04:00] VITALS: BP 150/88
[2022-04-20 05:36] LABS: BUN 5 mg/dl (7-24); CHLORIDE 97 mmol/L (98-107); CREATININE 0.38 mg/dL (0.70-1.30); POTASSIUM 3.5 mmol/L (3.5-5.1); SODIUM 126 mmol/L (136-145)
[2022-04-20 06:22] LABS: HEMATOCRIT 24.6 % (42.0-52.0); MEAN CELL VOLUME 89.5 fl (80.0-94.0); MEAN CORPUSCULAR HGB 29.5 pg (27.0-31.0); MEAN CORPUSCULAR HGB CONC 32.9 g/dl (33.0-37.0); PLATELET COUNT AUTOMATED 395 10*3/uL (130-400); RED BLOOD COUNT 2.75 10*6/uL (4.50-5.90); RED CELL DISTRI WIDTH 17.1 % (0-14.5); WHITE BLOOD COUNT 15.6 10*3/uL (4.8-10.8)
[2022-04-20 06:46] LABS: MANUAL DIFF REFLEX YES
[2022-04-20 07:02] LABS: POLYCHROMASIA SLIGHT; TARGET CELLS FEW; TOTAL CELLS COUNTED 100 #CELLS
[2022-04-20 07:03] LABS: BURR CELLS FEW; PLATELET SUFFICIENCY NORMAL (NORMAL); ROULEAUX SLIGHT; TOXIC GRANULATION SLIGHT
[2022-04-20 08:00] VITALS: BP 125/86
[2022-04-20 12:00] VITALS: BP 132/93
[2022-04-20 16:00] VITALS: BP 136/88
[2022-04-20 20:00] VITALS: BP 164/92
[2022-04-21] VITALS (7 sets, daily range): BP systolic 110–155; BP diastolic 60–95
[2022-04-21 07:21] LABS: HEMATOCRIT 24.9 % (42.0-52.0); MEAN CELL VOLUME 90.5 fl (80.0-94.0); MEAN CORPUSCULAR HGB 29.1 pg (27.0-31.0); MEAN CORPUSCULAR HGB CONC 32.1 g/dl (33.0-37.0); MEAN PLATELET VOLUME 8.7 fl (9.6-12.3); PLATELET COUNT AUTOMATED 401 10*3/uL (130-400); RED BLOOD COUNT 2.75 10*6/uL (4.50-5.90); WHITE BLOOD COUNT 14.2 10*3/uL (4.8-10.8)
[2022-04-21 07:37] LABS: MANUAL DIFF REFLEX YES
[2022-04-21 07:47] LABS: PLATELET SUFFICIENCY HIGH (NORMAL); TOTAL CELLS COUNTED 100 #CELLS
[2022-04-21 07:53] LABS: BUN 5 mg/dl (7-24); CHLORIDE 95 mmol/L (98-107); CREATININE 0.48 mg/dL (0.70-1.30); POTASSIUM 3.2 mmol/L (3.5-5.1); SODIUM 130 mmol/L (136-145)
[2022-04-21 12:35] LABS: ABG BASE EXCESS -0.6 mmol/L (-2.0-2.0); ARTERIAL BLOOD GAS PH 7.514 (7.35-7.45); ARTERIAL BLOOD GAS PO2 51.9 (80-90)
[2022-04-22] VITALS (12 sets, daily range): BP systolic 96–132; BP diastolic 61–82
[2022-04-22 05:15] LABS: ALKALINE PHOSPHATASE 103 U/L (45-117); BUN 6 mg/dl (7-24); CHLORIDE 98 mmol/L (98-107); POTASSIUM 3.3 mmol/L (3.5-5.1); SGOT/AST 55 IU/L (3-35); SGPT/ALT 27 U/L (12-78); SODIUM 131 mmol/L (136-145); TOTAL PROTEIN 6.1 gm/dL (6.4-8.2)
[2022-04-22 06:07] LABS: BASO % 0.2 % (0.0-1.0); HEMATOCRIT 23.6 % (42.0-52.0); LYMPH # 1.9 10*3/uL (1.3-4.4); LYMPH % 12.2 % (27.0-41.0); MEAN CELL VOLUME 88.4 fl (80.0-94.0); MEAN CORPUSCULAR HGB 28.8 pg (27.0-31.0); MEAN CORPUSCULAR HGB CONC 32.6 g/dl (33.0-37.0); MEAN PLATELET VOLUME 9.3 fl (9.6-12.3); MONO # 1.2 10*3/uL (0.1-1.0); NEUT % 78.3 % (47.0-73.0); PLATELET COUNT AUTOMATED 409 10*3/uL (130-400); RED BLOOD COUNT 2.67 10*6/uL (4.50-5.90); RED CELL DISTRI WIDTH 17.1 % (0-14.5); WHITE BLOOD COUNT 15.3 10*3/uL (4.8-10.8)
[2022-04-23] VITALS (12 sets, daily range): BP systolic 109–146; BP diastolic 64–83
[2022-04-23 05:38] LABS: CHLORIDE 99 mmol/L (98-107); CREATININE 0.46 mg/dL (0.70-1.30); POTASSIUM 3.6 mmol/L (3.5-5.1); SGOT/AST 65 IU/L (3-35); SGPT/ALT 28 U/L (12-78); SODIUM 132 mmol/L (136-145)
[2022-04-23 05:41] LABS: ALKALINE PHOSPHATASE 100 U/L (45-117); BUN 9 mg/dl (7-24); TOTAL PROTEIN 5.9 gm/dL (6.4-8.2)
[2022-04-23 06:09] LABS: BASO % 0.1 % (0.0-1.0); EOS % 0.2 % (1.0-4.0); HEMATOCRIT 23.8 % (42.0-52.0); LYMPH # 2.5 10*3/uL (1.3-4.4); LYMPH % 15.6 % (27.0-41.0); MEAN CELL VOLUME 89.8 fl (80.0-94.0); MEAN CORPUSCULAR HGB 28.7 pg (27.0-31.0); MEAN CORPUSCULAR HGB CONC 31.9 g/dl (33.0-37.0); MEAN PLATELET VOLUME 9.1 fl (9.6-12.3); MONO % 6.2 % (3.0-9.0); NEUT # 12.4 10*3/uL (2.3-7.9); PLATELET COUNT AUTOMATED 396 10*3/uL (130-400); RED BLOOD COUNT 2.65 10*6/uL (4.50-5.90); RED CELL DISTRI WIDTH 17.2 % (0-14.5); WHITE BLOOD COUNT 16.1 10*3/uL (4.8-10.8)
[2022-04-24] VITALS (11 sets, daily range): BP systolic 95–153; BP diastolic 69–97
[2022-04-24 06:28] LABS: BASO % 0.1 % (0.0-1.0); EOS % 0.2 % (1.0-4.0); HEMATOCRIT 25.1 % (42.0-52.0); LYMPH # 2.2 10*3/uL (1.3-4.4); MEAN CELL VOLUME 90.9 fl (80.0-94.0); MEAN CORPUSCULAR HGB 28.6 pg (27.0-31.0); MEAN CORPUSCULAR HGB CONC 31.5 g/dl (33.0-37.0); MEAN PLATELET VOLUME 9.3 fl (9.6-12.3); MONO # 0.8 10*3/uL (0.1-1.0); MONO % 4.4 % (3.0-9.0); NEUT # 14.9 10*3/uL (2.3-7.9); NEUT % 82.2 % (47.0-73.0); PLATELET COUNT AUTOMATED 388 10*3/uL (130-400); RED BLOOD COUNT 2.76 10*6/uL (4.50-5.90); RED CELL DISTRI WIDTH 17.2 % (0-14.5); WHITE BLOOD COUNT 18.2 10*3/uL (4.8-10.8)
[2022-04-24 06:33] LABS: ALKALINE PHOSPHATASE 98 U/L (45-117); BUN 9 mg/dl (7-24); CHLORIDE 97 mmol/L (98-107); CREATININE 0.56 mg/dL (0.70-1.30); POTASSIUM 3.6 mmol/L (3.5-5.1); SGOT/AST 66 IU/L (3-35); SGPT/ALT 31 U/L (12-78); SODIUM 134 mmol/L (136-145)
[2022-04-24 09:22] LABS: ABG BASE EXCESS 5.9 mmol/L (-2.0-2.0); ARTERIAL BLOOD GAS PH 7.48 (7.35-7.45); ARTERIAL BLOOD GAS PO2 61.5 (80-90)
[2022-04-24 17:56] LABS: BILIRUBIN Negative (Negative); BLOOD Negative (Negative); CLARITY Clear (Clear); COLOR Yellow (Yellow); GLUCOSE Negative (Negative); KETONE Negative (Negative); LEUKO ESTERASE Negative (Negative); NITRITE Negative (Negative); PH 6.5 (4.5-8.0); UROBILINOGEN 0.2 E.U./dl (0.0-1.0)
[2022-04-24 18:17] LABS: EPITHELIAL CELLS 0-2; HYALINE CAST 0-2
[2022-04-25] VITALS (30 sets, daily range): BP systolic 81–139; BP diastolic 49–82
[2022-04-25 06:27] LABS: BUN 11 mg/dl (7-24); CHLORIDE 94 mmol/L (98-107); CREATININE 0.51 mg/dL (0.70-1.30); POTASSIUM 3.2 mmol/L (3.5-5.1); SGOT/AST 51 IU/L (3-35); SGPT/ALT 23 U/L (12-78); SODIUM 133 mmol/L (136-145)
[2022-04-25 06:28] LABS: ALKALINE PHOSPHATASE 96 U/L (45-117); BASO % 0.1 % (0.0-1.0); EOS # 0.1 10*3/uL (0.0-0.4); EOS % 0.6 % (1.0-4.0); HEMATOCRIT 24.7 % (42.0-52.0); LYMPH # 1.6 10*3/uL (1.3-4.4); LYMPH % 9.2 % (27.0-41.0); MEAN CELL VOLUME 90.8 fl (80.0-94.0); MEAN PLATELET VOLUME 9.6 fl (9.6-12.3); MONO # 0.5 10*3/uL (0.1-1.0); NEUT # 15.5 10*3/uL (2.3-7.9); NEUT % 86.4 % (47.0-73.0); PLATELET COUNT AUTOMATED 310 10*3/uL (130-400); RED BLOOD COUNT 2.72 10*6/uL (4.50-5.90); RED CELL DISTRI WIDTH 16.9 % (0-14.5); TOTAL PROTEIN 5.6 gm/dL (6.4-8.2); WHITE BLOOD COUNT 17.9 10*3/uL (4.8-10.8)
[2022-04-25 08:21] LABS: ABG BASE EXCESS 4.2 mmol/L (-2.0-2.0); ARTERIAL BLOOD GAS PH 7.452 (7.35-7.45); ARTERIAL BLOOD GAS PO2 84.2 (80-90)
[2022-04-25 17:36] LABS: ABG BASE EXCESS 4.2 mmol/L (-2.0-2.0); ARTERIAL BLOOD GAS PH 7.341 (7.35-7.45)
[2022-04-26] VITALS (95 sets, daily range): BP systolic 69–142; BP diastolic 41–80
[2022-04-26 05:41] LABS: CHLORIDE 94 mmol/L (98-107); POTASSIUM 3.1 mmol/L (3.5-5.1); SODIUM 136 mmol/L (136-145)
[2022-04-26 05:47] LABS: ALKALINE PHOSPHATASE 93 U/L (45-117); BUN 8 mg/dl (7-24); SGOT/AST 33 IU/L (3-35); SGPT/ALT 15 U/L (12-78); TOTAL PROTEIN 5.7 gm/dL (6.4-8.2)
[2022-04-26 06:16] LABS: BASO % 0.2 % (0.0-1.0); EOS # 0.3 10*3/uL (0.0-0.4); EOS % 1.4 % (1.0-4.0); HEMATOCRIT 23.9 % (42.0-52.0); LYMPH # 2.3 10*3/uL (1.3-4.4); LYMPH % 10.8 % (27.0-41.0); MEAN CELL VOLUME 91.2 fl (80.0-94.0); MEAN CORPUSCULAR HGB 28.6 pg (27.0-31.0); MEAN CORPUSCULAR HGB CONC 31.4 g/dl (33.0-37.0); MEAN PLATELET VOLUME 9.6 fl (9.6-12.3); MONO # 0.7 10*3/uL (0.1-1.0); MONO % 3.2 % (3.0-9.0); NEUT # 17.9 10*3/uL (2.3-7.9); NEUT % 83.9 % (47.0-73.0); PLATELET COUNT AUTOMATED 328 10*3/uL (130-400); RED BLOOD COUNT 2.62 10*6/uL (4.50-5.90); RED CELL DISTRI WIDTH 16.9 % (0-14.5); WHITE BLOOD COUNT 21.3 10*3/uL (4.8-10.8)
[2022-04-26 09:01] LABS: ARTERIAL BLOOD GAS PH 7.421 (7.35-7.45); ARTERIAL BLOOD GAS PO2 89.6 (80-90)
[2022-04-27] VITALS (96 sets, daily range): BP systolic 66–112; BP diastolic 43–69
[2022-04-27 00:46] LABS: BUN 10 mg/dl (7-24); CHLORIDE 96 mmol/L (98-107); CREATININE 0.76 mg/dL (0.70-1.30); POTASSIUM 3.3 mmol/L (3.5-5.1); SODIUM 132 mmol/L (136-145)
[2022-04-27 05:15] LABS: BUN 11 mg/dl (7-24); CHLORIDE 94 mmol/L (98-107); CREATININE 0.83 mg/dL (0.70-1.30); LIPASE 172 U/L (73-393); POTASSIUM 3.5 mmol/L (3.5-5.1); SGOT/AST 37 IU/L (3-35); SGPT/ALT 13 U/L (12-78); SODIUM 131 mmol/L (136-145); TOTAL PROTEIN 5.7 gm/dL (6.4-8.2); TRIGLYCERIDES 64 mg/dl (<150)
[2022-04-27 05:17] LABS: ALKALINE PHOSPHATASE 92 U/L (45-117)
[2022-04-27 06:07] LABS: HEMATOCRIT 26.4 % (42.0-52.0); MEAN CORPUSCULAR HGB 28.3 pg (27.0-31.0); MEAN CORPUSCULAR HGB CONC 29.9 g/dl (33.0-37.0); MEAN PLATELET VOLUME 9.8 fl (9.6-12.3); PLATELET COUNT AUTOMATED 324 10*3/uL (130-400); RED BLOOD COUNT 2.79 10*6/uL (4.50-5.90); RED CELL DISTRI WIDTH 17.4 % (0-14.5)
[2022-04-27 06:33] LABS: MANUAL DIFF REFLEX YES
[2022-04-27 07:28] LABS: MEAN CELL VOLUME 94.6 fl (80.0-94.0)
[2022-04-27 07:30] LABS: TOTAL CELLS COUNTED 100 #CELLS
[2022-04-27 07:31] LABS: PLATELET SUFFICIENCY NORMAL (NORMAL)
[2022-04-28] VITALS (95 sets, daily range): BP systolic 81–122; BP diastolic 42–74
[2022-04-28 05:06] LABS: CREATININE 1.71 mg/dL (0.70-1.30); POTASSIUM 4.4 mmol/L (3.5-5.1); TOTAL PROTEIN 5.5 gm/dL (6.4-8.2)
[2022-04-28 06:19] LABS: HEMATOCRIT 24.8 % (42.0-52.0); MEAN CELL VOLUME 92.2 fl (80.0-94.0); MEAN CORPUSCULAR HGB 28.6 pg (27.0-31.0); MEAN PLATELET VOLUME 10.3 fl (9.6-12.3); PLATELET COUNT AUTOMATED 283 10*3/uL (130-400); RED BLOOD COUNT 2.69 10*6/uL (4.50-5.90); RED CELL DISTRI WIDTH 17.6 % (0-14.5); WHITE BLOOD COUNT 22.3 10*3/uL (4.8-10.8)
[2022-04-28 06:39] LABS: MANUAL DIFF REFLEX YES
[2022-04-28 07:01] LABS: BASOPHILS 2 % (0-1); PLATELET SUFFICIENCY NORMAL (NORMAL); TOTAL CELLS COUNTED 100 #CELLS
[2022-04-29] VITALS (96 sets, daily range): BP systolic 89–147; BP diastolic 54–81
[2022-04-29 05:29] LABS: CREATININE 2.58 mg/dL (0.70-1.30); POTASSIUM 4.6 mmol/L (3.5-5.1); TOTAL PROTEIN 5.6 gm/dL (6.4-8.2)
[2022-04-29 06:20] LABS: HEMATOCRIT 23.5 % (42.0-52.0); MEAN CELL VOLUME 89.4 fl (80.0-94.0); MEAN CORPUSCULAR HGB 28.9 pg (27.0-31.0); MEAN CORPUSCULAR HGB CONC 32.3 g/dl (33.0-37.0); MEAN PLATELET VOLUME 10.8 fl (9.6-12.3); PLATELET COUNT AUTOMATED 248 10*3/uL (130-400); RED BLOOD COUNT 2.63 10*6/uL (4.50-5.90); RED CELL DISTRI WIDTH 17.3 % (0-14.5)
[2022-04-29 06:30] LABS: MANUAL DIFF REFLEX YES
[2022-04-29 07:16] LABS: BURR CELLS FEW; PLATELET SUFFICIENCY NORMAL (NORMAL); POLYCHROMASIA SLIGHT; TOTAL CELLS COUNTED 100 #CELLS; VACUOLATION OF NEUTROPHILS SLIGHT
[2022-04-29 09:12] LABS: ARTERIAL BLOOD GAS PH 7.204 (7.35-7.45); ARTERIAL BLOOD GAS PO2 146.7 (80-90)
[2022-04-29 09:17] LABS: ABG BASE EXCESS -6.9 mmol/L (-2.0-2.0)
[2022-04-29 10:47] LABS: CREATININE 2.82 mg/dL (0.70-1.30); POTASSIUM 4.6 mmol/L (3.5-5.1)
[2022-04-29 10:50] LABS: CHOLESTEROL 59 mg/dL (<200); LDL CHOLESTEROL 27 mg/dL (9-159); TRIGLYCERIDES 105 mg/dl (<150)
[2022-04-30] VITALS (49 sets, daily range): BP systolic 95–125; BP diastolic 52–67
[2022-04-30 05:20] LABS: CREATININE 3.19 mg/dL (0.70-1.30); POTASSIUM 5.3 mmol/L (3.5-5.1); TOTAL PROTEIN 5.9 gm/dL (6.4-8.2)
[2022-04-30 06:05] LABS: MEAN CELL VOLUME 88.9 fl (80.0-94.0); MEAN CORPUSCULAR HGB 28.5 pg (27.0-31.0); MEAN CORPUSCULAR HGB CONC 32.1 g/dl (33.0-37.0); MEAN PLATELET VOLUME 11.4 fl (9.6-12.3); PLATELET COUNT AUTOMATED 219 10*3/uL (130-400); RED CELL DISTRI WIDTH 17.3 % (0-14.5); WHITE BLOOD COUNT 18.2 10*3/uL (4.8-10.8)
[2022-04-30 06:07] LABS: MANUAL DIFF REFLEX YES
[2022-04-30 07:02] LABS: TOTAL CELLS COUNTED 100 #CELLS
[2022-04-30 07:03] LABS: BURR CELLS MODERATE; PLATELET SUFFICIENCY NORMAL (NORMAL); POLYCHROMASIA SLIGHT; SCHISTOCYTES FEW; TOXIC GRANULATION SLIGHT; VACUOLATION OF NEUTROPHILS SLIGHT
== END 2022-04-30 12:26 | disposition hospice, inpatient (51) | DRG 870 ==
LOC: ED 10:31 → EDHOLD 15:32 → ICCU 15:32
PROVIDERS: Emergency Medicine; Internal Medicine; Internal Medicine Critical Care Medicine; Internal Medicine Infectious Disease; Internal Medicine Nephrology; Student in an Organized Health Care Education/Training Program; ADMIT Internal Medicine; ATTEND Internal Medicine
PROC: 30233N1 Transfusion of Nonautologous Red Blood Cells into Peripheral Vein, Percutaneous Approach (ICD-10-PCS; principal; 2022-04-13)
PROC: 0DJ08ZZ Inspection of Upper Intestinal Tract, Via Natural or Artificial Opening Endoscopic (ICD-10-PCS; 2022-04-14)
PROC: 5A09357 Assistance with Respiratory Ventilation, Less than 24 Consecutive Hours, Continuous Positive Airway Pressure (ICD-10-PCS; 2022-04-21)
PROC: 5A0935A Assistance with Respiratory Ventilation, Less than 24 Consecutive Hours, High Flow/Velocity Cannula (ICD-10-PCS; 2022-04-21)
PROC: 5A09357 Assistance with Respiratory Ventilation, Less than 24 Consecutive Hours, Continuous Positive Airway Pressure (ICD-10-PCS; 2022-04-22)
PROC: 5A0935A Assistance with Respiratory Ventilation, Less than 24 Consecutive Hours, High Flow/Velocity Cannula (ICD-10-PCS; 2022-04-22)
PROC: 5A09357 Assistance with Respiratory Ventilation, Less than 24 Consecutive Hours, Continuous Positive Airway Pressure (ICD-10-PCS; 2022-04-24)
PROC: 02HV33Z Insertion of Infusion Device into Superior Vena Cava, Percutaneous Approach (ICD-10-PCS; 2022-04-25)
PROC: B548ZZA Ultrasonography of Superior Vena Cava, Guidance (ICD-10-PCS; 2022-04-25)
PROC: 5A1955Z Respiratory Ventilation, Greater than 96 Consecutive Hours (ICD-10-PCS; 2022-04-25)
PROC: 0BH17EZ Insertion of Endotracheal Airway into Trachea, Via Natural or Artificial Opening (ICD-10-PCS; 2022-04-25)
DX: A41.9 Sepsis, unspecified organism (principal); E43 Unspecified severe protein-calorie malnutrition; J18.9 Pneumonia, unspecified organism; G93.41 Metabolic encephalopathy; I50.31 Acute diastolic (congestive) heart failure; R65.21 Severe sepsis with septic shock; K85.90 Acute pancreatitis without necrosis or infection, unspecified; J96.00 Acute respiratory failure, unspecified whether with hypoxia or hypercapnia; K92.2 Gastrointestinal hemorrhage, unspecified; E87.1 Hypo-osmolality and hyponatremia; A04.72 Enterocolitis due to Clostridium difficile, not specified as recurrent; E87.2 Acidosis; J44.1 Chronic obstructive pulmonary disease with (acute) exacerbation; I47.2 Ventricular tachycardia; Z16.39 Resistance to other specified antimicrobial drug; J44.0 Chronic obstructive pulmonary disease with (acute) lower respiratory infection; D50.0 Iron deficiency anemia secondary to blood loss (chronic); K21.9 Gastro-esophageal reflux disease without esophagitis; I25.10 Atherosclerotic heart disease of native coronary artery without angina pectoris; S71.102A Unspecified open wound, left thigh, initial encounter; E03.9 Hypothyroidism, unspecified; G89.29 Other chronic pain; R73.9 Hyperglycemia, unspecified; M54.9 Dorsalgia, unspecified; E87.8 Other disorders of electrolyte and fluid balance, not elsewhere classified; E80.6 Other disorders of bilirubin metabolism; E55.9 Vitamin D deficiency, unspecified; F17.210 Nicotine dependence, cigarettes, uncomplicated; F10.20 Alcohol dependence, uncomplicated; K70.31 Alcoholic cirrhosis of liver with ascites; D75.839 Thrombocytosis, unspecified; Z66 Do not resuscitate; Z20.822 Contact with and (suspected) exposure to COVID-19; S71.101A Unspecified open wound, right thigh, initial encounter; X58.XXXA Exposure to other specified factors, initial encounter; Y93.89 Activity, other specified; Y92.89 Other specified places as the place of occurrence of the external cause; Y99.8 Other external cause status; Z88.0 Allergy status to penicillin; Z88.8 Allergy status to other drugs, medicaments and biological substances; Z82.49 Family history of ischemic heart disease and other diseases of the circulatory system; Z51.5 Encounter for palliative care; Z68.22 Body mass index [BMI] 22.0-22.9, adult

== ENCOUNTER 2022-04-30 12:29 | Inpatient (IN) | payer OTHER, MEDICAID ==
[~2022-04-30] VITALS: Ht 177.8 cm; Wt 76.2 kg
[2022-04-30 12:50] VITALS: BP 124/67
[2022-04-30 15:00] VITALS: BP 110/50
== END 2022-04-30 18:26 | DRG 208 ==
LOC: ICCU 12:29
PROVIDERS: ADMIT Student in an Organized Health Care Education/Training Program; ATTEND Student in an Organized Health Care Education/Training Program
PROC: 5A1935Z Respiratory Ventilation, Less than 24 Consecutive Hours (ICD-10-PCS; principal; 2022-04-30)
DX: J96.02 Acute respiratory failure with hypercapnia (principal); N17.0 Acute kidney failure with tubular necrosis; Z66 Do not resuscitate; Z51.5 Encounter for palliative care